=== PATIENT | female | born 1985 | race Caucasian/White ===

== ENCOUNTER → 2021-10-13 09:45 | Outpatient (CLI) | payer SELFPAY ==
--- NOTE | 2021-10-13 09:59 | US_ITS ---
FINAL REPORT CLINICAL HISTORY: ANATOMY SCAN FINDINGS: Sonographic images of the gravid uterus were obtained. There is a single living intrauterine . Heart rate was detected measuring 149 bpm. The position is variable. The biparietal diameter is 4.97 cm corresponding to 21 week 1 day gestation. The head circumference is 17.62 cm corresponding to 20 week 1 day gestation. The abdominal circumference is 16.10 cm corresponding to 21 week 2 day gestation. The femur length is 3.41 cm corresponding to 20 weeks 6 day gestation. The placenta is fundal and posterior. The average ultrasound age is 20 week 6 day gestation. No anomaly is identified. IMPRESSION: Single living intrauterine . Reviewed, Interpreted and Dictated by Justin Barrett III, MD Transcribed by Laura Serra Authenticated by Justin Barrett III, MD on 10/13/2021 01:00:13 PM [facility][1]
== END ==
DX: O09.522 Supervision of elderly multigravida, second trimester (principal)
CPT/HCPCS: 76801

== ENCOUNTER 2024-06-12 11:25 | Outpatient (CLI) | payer BC, SELFPAY ==
[2024-06-12 11:42] LABS: Basophils % 0.3 % (0.1-2.0); Eosinophils # 0.3 K/mm3 (0.0-0.4); Hematocrit 43.6 % (37.0-47.0); Hemoglobin 14.1 g/dL (12.2-16.2); Lymphocytes # 0.9 K/mm3 (0.7-4.5); Lymphocytes % 18.3 % (10-50); Mean Corpuscular HGB Conc 32.2 g/dL (31.8-35.4); Mean Corpuscular Volume 93.2 fl (81-99); Mean Platelet Volume 8.5 fl (7.4-10.4); Monocytes # 0.3 K/mm3 (0.1-1.0); Monocytes % 5.1 % (1.7-9.3); Neutrophils # 3.6 K/mm3 (1.8-7.8); Neutrophils % 71.3 % (37.0-80.0); Platelet Count 245 K/mm3 (142-424); Red Blood Count 4.68 M/mm3 (4.20-5.40); Red Cell Distribution Width 13.1 % (11.5-17.5); White Blood Count 5.1 K/mm3 (4.8-10.8)
[2024-06-12 12:19] LABS: Alanine Aminotransferase 14 U/L (12-78); Albumin/Globulin Ratio 1.4 (1.1-1.8); Alkaline Phosphatase 61 U/L (38-126); Anion Gap 7.7 mEq/L (5-15); Aspartate Amino Transferase 19 U/L (14-36); Bilirubin,Total 0.6 mg/dl (0.2-1.3); Blood Urea Nitrogen 10 mg/dl (7-17); Calcium 8.4 mg/dl (8.4-10.2); Carbon Dioxide 29 mmol/L (22.0-30.0); Chloride 105 mmol/L (98-107); Cholesterol 131 mg/dl (140-200); Estimated Glomerular Filt Rate 111 ml/min (>60); GFR (African American) 135 ML/MIN (>60); Globulin 2.9 g/dL (1.3-3.2); Glucose 96 mg/dl (74-100); HDL Cholesterol 44 mg/dl (40-60); Potassium 4.7 mmoL/L (3.5-5.1); Sodium 137 mmol/L (136-145); Total Protein,Serum 6.9 g/dl (6.3-8.2); Triglycerides 68 mg/dl (30-150); VLDL Cholesterol 14 mg/dL (0-40)
[2024-06-12 12:30] LABS: Direct LDL Cholesterol 63.29 mg/dL (100-129)
[2024-06-12 12:35] LABS: 25-OH Vitamin D, Total 43.9 ng/mL (30-100)
[2024-06-12 12:37] LABS: Free Thyroxine Index 3.1 ug/dL (5.93-13.13); T4 (Thyroxine) 8.4 ug/dl (5.53-11.0); Triiodothryronine (T3) Uptake 37 % (23.5-40.5)
[2024-06-12 12:50] LABS: Thyroid Stimulating Hormone 0.77 uIU/mL (0.465-4.68)
[2024-06-12 15:19] LABS: Iron 69 ug/dL (37-170)
[2024-06-12 15:30] LABS: Total Iron Binding Capacity 264 ug/dL (265-497)
[2024-06-12 15:58] LABS: Ferritin 40.2 ng/ml (6.24-137)
[2024-06-12 16:41] LABS: Hemoglobin A1C 5.1 % (4.0-6.0)
[2024-06-13 12:14] LABS: FSH 6.1 mIU/mL (.)
== END 2024-06-12 23:59 | disposition home or self-care (01) ==
LOC: LAB 11:26
PROVIDERS: PCP Student in an Organized Health Care Education/Training Program; Visit Provider Student in an Organized Health Care Education/Training Program
DX: G47.00 Insomnia, unspecified (principal); E03.9 Hypothyroidism, unspecified; R73.03 Prediabetes; Z13.21 Encounter for screening for nutritional disorder; R23.2 Flushing; G25.81 Restless legs syndrome
CPT/HCPCS: 36415; 80050; 80053; 80061; 82306; 82670; 82728; 83001; 83036; 83540; 83550; 84436; 84443; 84479; 85025

== ENCOUNTER 2025-07-16 14:33 | Outpatient (CLI) | payer BC, SELFPAY ==
--- OUTSIDE RECORDS SUMMARY | 2025-06-26 13:10 | XMS_ITS | Encounter Summary ---
Author Organization [employer] ([place], [place], [place], [place]) Address [address] [place] [address] Care Team Providers Care Cutting Table Operator Name Role Phone Olivia Lowry APRN Primary Care Provider [phone] Reason for Visit * Reason Comments Palpitations Encounter Details Date Type Department Care Team (Late st Contact Info) Description 06/26/2025 1:10 PM EDT - 06/26/2025 4:06 PM EDT Emergency [facility] Emergency Department [address] [place] [phone] Mookie Johnson MD [address] [place] [address] Palpitations (Primary Dx); Insomnia, unspecified type Discharge Disposition: Home or Self Care Social History Tobacco Use Types Packs/Day Years Used Date Smoking Tobacco: Never Smokeless Tobacco: Never Alcohol Use Standard Drinks/Week Comments Never 0 (1 standard drink = 0.6 oz pur e alcohol) Comments No Sex and Gender Information Value Date Recorded Sex Assigned at Not on file 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 Gender Identity Not on file Sexual Orientation Not on file documented as of this encounter Last Filed Vital Signs Vital Sign Reading Time Taken Comments Blood Pressure 102/66 06/26/2025 3:34 PM EDT Pulse 90 06/26/2025 3:34 PM EDT Temperature 36.7 C (98 F) 06/26/2025 1:17 PM EDT Respiratory Rate 18 06/26/2025 3:34 PM EDT Oxygen Saturation 95% 06/26/2025 3:34 PM EDT Inhaled Oxygen Concentration - - Weight 81.6 kg (180 lb) 06/26/2025 1:17 PM EDT Height 170.2 cm (5' 7 ) 06/26/2025 1:17 PM EDT Body Mass Index 28.19 06/26/2025 1:17 PM EDT documented in this encounter Discharge Instructions * Attachments The following attachments cannot be sent through Care Everywhere. * Palpitations (Marshallese) * Insomnia (Marshallese) documented in this encounter Medications at Time of Discharge liothyronine (CYTOMEL) 5 MCG tabletIndication s:Hypothyroidism Take 1 tablet (5 mcg total) by mouth 2 (two) times daily. 60 tablet 11 05/11/2025 tirzepatide, weight loss, (Zepbound) 15 mg/0.5 mL pnijIndications: Obesity, class 1 Inject 0.5 mLs (15 mg total) under the skin every 7 days. 2 mL 3 05/11/2025 UNKNOWN Mag Glycinate 0785-2181 daily Mag 07-2 capsuled Vit d 10,000-15,000 3 arrows nutra iron plus ( heme iron) 132mg iron daily Tart stuart juice nightly 8oz Biodentical progesterone cream . documented as of this encounter ED Notes * Rob Guevara PA-C - 06/26/2025 1:38 PM EDT Subjective Chief Complaint: Palpitations History of Present Illness: Patient is a 40 y.o. female with past medical history of hypothyroid disease who for last 4 days has had palpitations that come on at night. Sometimes they will wake her up in the middle of the night as well. Saw her primary care provider earlier today for Holter monitor. She does report in the ER, but denies any associated chest pain. Some insomnia and has been on trazodone as well as hydroxyzine which did not help. Patient History Past Medical History: Diagnosis Date Thyroid condition No past surgical history on file. Social History Tobacco Use Smoking status: Never Smokeless tobacco: Never Substance Use Topics Alcohol use: Never Primary Care Provider: Olivia Lowry APRN Review of Systems Review of Systems Negative except as documented in the HPI. Physical Exam Vitals: 06/26/25 1415 06/26/25 1430 06/26/25 1445 06/26/25 1500 BP: Pulse: 96 93 90 85 Resp: Temp: SpO2: 97% 98% 98% 98% Weight: Height: Physical Exam Vitals and nursing note reviewed. Constitutional: General: She is not in acute distress. Appearance: Normal appearance. She is normal weight. She is not ill-appearing, toxic-appearing or diaphoretic. HENT: Head: Normocephalic. Right Ear: External ear normal. Left Ear: External ear normal. Nose: Nose normal. No congestion or rhinorrhea. Eyes: General: No scleral icterus. Right eye: No discharge. Left eye: No discharge. Cardiovascular: Rate and Rhythm: Normal rate and regular rhythm. Pulses: Normal pulses. Heart sounds: Normal heart sounds. No murmur heard. No friction rub. No gallop. Pulmonary: Effort: Pulmonary effort is normal. No respiratory distress. Breath sounds: Normal breath sounds. Abdominal: General: Bowel sounds are normal. There is no distension. Palpations: Abdomen is soft. Tenderness: There is no abdominal tenderness. Musculoskeletal: General: Normal range of motion. Cervical back: Normal range of motion. Skin: Capillary Refill: Capillary refill takes less than 2 seconds. Neurological: General: No focal deficit present. Mental Status: She is alert. Mental status is at baseline. Psychiatric: Mood and Affect: Mood normal. Behavior: Behavior normal. Thought Content: Thought content normal. Judgment: Judgment normal. Procedures ED Course & MDM ED Course as of 06/26/25 1538 SunJun 26, 2025 1523 ECG Interpretation: Regular Sinus Rhythm with a heart rate of 88. Right axis. Non-specific ST/T wave changes, as interpreted by me. No overt evidence of Brugada sign, delta waves, epsilon waves,significantly prolonged QTc, excessively short UT, or malignant arrhythmia. [WK] ED Course User Index [WK] Mookie Johnson MD Medications - No data to display Medical Decision Making Amount and/or Complexity of Data Reviewed Labs: ordered. Radiology: ordered. ECG/medicine tests: ordered. History of Present Illness: Patient is a 40 y.o. female with past medical history of hypothyroid disease who for last 4 days has had palpitations that come on at night. Sometimes they will wake her up in the middle of the night as well. Saw her primary care provider earlier today for Holter monitor. She does report in the ER, but denies any associated chest pain. Some insomnia and has been on trazodone as well as hydroxyzine which did not help. On exam heart lungs are clear to auscultation. Presenting vitals: Within normal limits Differential diagnosis: Insomnia, electrolyte disturbance, arrhythmia. Labs: CBC, CMP, iron, CBC, ferritin, TSH, magnesium, troponin nonactionable. Imaging: Per my independent interpretation of chest x-ray I do not appreciate any infiltrates or effusions. ECG: Documented in the ED course by the attending physician. Telemetry: Normal sinus rhythm at 78 bpm, no ST segment changes Interventions: Medications - No data to display Discussion: Had lengthy conversation with patient. Unfortunately we do not do Holter monitors in the emergency department. I did do as many labs as I could based off outpatient orders which came backon patient states that putting on supplemental oxygen will actually help her sleepiness. Could havea degree of sleep apnea here and as such we will provide with sleep follow-up. Also provided with cardiology follow-up for possible Holter monitor placement. Telemetry and EKG here are reassuring. Patient was informed of all diagnostic tests as well as their diagnosis. They were educated on return and follow-up parameters. All questions were answered to the best of my ability. Patient found in satisfactory condition and subsequently discharged home. Assessment & Plan Clinical Impression Diagnosis Comment Added By Time Added Palpitations Rob Guevara PA-C 06/26/2025 2:24 PM Insomnia, unspecified type Rob Guevara PA-C 06/26/2025 2:25 PM Disposition: Discharge [1] - 06/26/2025 3:32 PM New Prescriptions No medications on file Contact information for follow-up [facility] Emergency Department Specialty: Emergency Medicine [address] [facility] [id number] Next Steps: Go to Instructions: As needed, If symptoms worsen Olivia Lowry APRN Specialty: Family Medicine, Advanced Practice Registered Nurse Relationship: PCP - General [address] [place] [address] Next Steps: Schedule an appointment as soon as possible for a visit Instructions: As needed, Continuance of care [facility]- CARDIOLOGY [facility] [address] Next Steps: Schedule an appointment as soon as possible for a visit Instructions: Continuance of care [facility] Cardiology Specialty: Cardiology [address] [facility] [phone] Next Steps: Schedule an appointment as soon as possible for a visit Instructions: Continuance of care [facility] Specialty: Sleep Medicine [address] [facility] [address] [facility] [address] Next Steps: Follow up Electronically authenticated by: Rob Guevara PA-C 06/26/25 1538 Cosigned by Mookie Johnson MD at 06/26/2025 5:25 PM EDT Associated attestation - Mookie Johnson MD - 06/26/2025 4:25 PM CDT Based on the medical record, the care appears appropriate . * Zora Aleman RN - 06/26/2025 1:16 PM EDT Pt to ed c/o palpitations since Sunday. States she has had this happen before and has EKGs done andwants a holter monitor to catch it since it usually happens at night documented in this encounter Plan of Treatment Upcoming Encounters Date Type Department Care Team (Late st Contact Info) Description 08/11/2025 10:00 AM EST Office Visit [facility] Primary Care [address] [place] [address] Olivia Lowry APRN [address] [place] [address] 08/06/2026 9:00 AM EST Office Visit [facility] Primary Care [address] [place] [address] Olivia Lowry, SCIENTIFIC AFFAIRS MANAGER [address] [place], [place] [address] documented as of this encounter Procedures Procedure Name Priority Date/Time Associated Diagnosis Comments FS_MODEL_IP_ECG 12-LEAD STAT 06/26/2025 3:19 PM EDT CBC W/ AUTO DIFF STAT 06/26/2025 2:42 PM EDT TSH W REFLEX FT4 STAT 06/26/2025 2:42 PM EDT IRON AND TIBC STAT 06/26/2025 2:42 PM EDT MAGNESIUM STAT 06/26/2025 2:42 PM EDT FERRITIN STAT 06/26/2025 2:42 PM EDT COMPREHENSIVE METABOLIC PANEL STAT 06/26/2025 2:42 PM EDT HIGH SENSITIVITY TROPONIN I STAT 06/26/2025 2:41 PM EDT FOLATE, SERUM STAT 06/26/2025 2:41 PM EDT XR CHEST 1 VIEW PORTABLE / BEDSIDE STAT 06/26/2025 1:49 PM EDT EKG-SCANNED 06/26/2025 documented in this encounter Results * ECG 12 lead (06/26/2025 3:19 PM EDT) VENTRICULAR RATE EKG/MIN 88 BPM GE MUSE ATRIAL RATE (MCT) 88 BPM GE MUSE UT Interval 140 ms GE MUSE QRS-INTERVAL (MSEC) 68 ms GE MUSE QT Interval 362 ms GE MUSE QTC Interval 438 ms GE MUSE P [place] 88 degrees GE MUSE R AXIS (MCT) 96 degrees GE MUSE T Wave [place] 66 degrees GE MUSE Sturgeon Diagnosis Normal sinus rhythm Rightward axis Low voltage QRS Borderline ECG No previous ECGs available Confirmed by Rajwinder BAUTISTA SUZANNE ([id number]) on 07/02/2025 5:45:17 PM GE MUSE 06/26/2025 3:19 PM EDT 07/02/2025 5:45 PM EDT Rob Guveara PA-C ECG ORDERABLES Final Result Performing Organization Address [facility] [[email or web address]] de Phone Number GE MUSE * TSH with Reflex FT4 (06/26/2025 2:42 PM EDT) TSH 1.350 0.358 - 3.740 uIU/mL 06/26/2025 3:12 PM EDT [facility] Blood Venipuncture / Unknown 06/26/2025 2:42 PM EDT 06/26/2025 2:42 PM EDT Rob MOY-C LAB BLOOD ORDERABLES Final Resul t Performing Organization Address [facility] de Phone Number [facility] [address] [phone] * Ferritin (06/26/2025 2:42 PM EDT) Ferritin 62.00 8.00 - 252.00 ng/mL 06/26/2025 3:12 PM EDT [facility] Blood Venipuncture / Unknown 06/26/2025 2:42 PM EDT 06/26/2025 2:42 PM EDT Rob Guevara PA-C LAB BLOOD ORDERABLES Final Resul t Performing Organization Address [facility] [[email or web address]] de Phone Number [facility] [address] [phone] * Iron and TIBC (06/26/2025 2:42 PM EDT) Iron 62 50.0 - 170.0 ug/dL 06/26/2025 3:12 PM EDT [facility] TIBC 268 250 - 450 ug/dL 06/26/2025 3:12 PM EDT [facility] % Saturation 23 15 - 55 % 06/26/2025 3:12 PM EDT [facility] UIBC 206 06/26/2025 3:12 PM EDT [facility] Blood Venipuncture / Unknown 06/26/2025 2:42 PM EDT 06/26/2025 2:42 PM EDT Rob MOY-[place]hel LAB BLOOD ORDERABLES Final Resul t Performing Organization Address [facility] Co de Phone Number [facility] [address] [phone] * Magnesium (06/26/2025 2:42 PM EDT) Magnesium 2.3 1.5 - 2.4 mg/dL 06/26/2025 3:12 PM EDT [facility] Blood Venipuncture / Unknown 06/26/2025 2:42 PM EDT 06/26/2025 2:42 PM EDT Rob MOY-C LAB BLOOD ORDERABLES Final Resul t Performing Organization Address [facility] [[email or web address]] de Phone Number [facility] [address] [phone] * (ABNORMAL) Comprehensive metabolic panel (06/26/2025 2:42 PM EDT) Sodium 139 136 - 146 meq/L 06/26/2025 3:12 PM EDT [facility] Potassium 3.6 3.5 - 5.1 meq/L 06/26/2025 3:12 PM EDT [facility] Chloride 108 102 - 112 meq/L 06/26/2025 3:12 PM EDT [facility] CO2 27 21 - 32 meq/L 06/26/2025 3:12 PM EDT [facility] Calcium 9.1 8.5 - 10.1 mg/dL 06/26/2025 3:12 PM [facility] Glucose 96 74 - 100 mg/dL 06/26/2025 3:12 PM [facility] BUN 12 7 - 22 mg/dL 06/26/2025 3:12 PM [facility] Creatinine 0.67 0.55 - 1.02 mg/dL 06/26/2025 3:12 PM [facility] BUN/Creatinine 18 8 - 20 06/26/2025 3:12 PM [facility] Albumin 3.7 3.4 - 5.0 g/dL 06/26/2025 3:12 PM [facility] Alkaline Phosphatase 53 27 - 136 U/L 06/26/2025 3:12 PM [facility] ALT 22 12 - 78 U/L 06/26/2025 3:12 PM [facility] AST 13 5 - 37 U/L 06/26/2025 3:12 PM [facility] Total Bilirubin 0.5 0.2 - 1.3 mg/dL 06/26/2025 3:12 PM [facility] Protein, Total 7.2 6.4 - 8.2 gm/dL 06/26/2025 3:12 PM [facility] Anion Gap 8(L) 9 - 20 06/26/2025 3:12 PM [facility] A/G Ratio 1.1 1.1 - 2.5 06/26/2025 3:12 PM [facility] Globulin 3.5 1.5 - 4.5 g/dL 06/26/2025 3:12 PM [facility] Osmolality Calc 277.2 mOsm/kg 3:12 PM [facility] eGFR (mL/min/1.73m2) >60 >=60 mL/min/1.7 3m2 06/26/2025 3:12 PM [facility] Comment:ESTIMATED GFR IS NOT ACCURATE CREATININE CLEARANCE IN PREDICTING GLOMERULAR FILTRATION RATE. ESTIMATED GFR IS NOT APPLICABLE FOR DIALYSIS PATIENTS. Blood Venipuncture / Unknown 06/26/2025 2:42 PM EDT 06/26/2025 2:42 PM EDT us Rob Guevara PA-C LAB BLOOD ORDERABLES Final Resul t [facility] [address] [facility] [place] [address], [facility] [phone] * CBC with Auto Diff (06/26/2025 2:42 PM EDT) WBC 6.7 3.9 - 10.0 K/ L 06/26/2025 2:47 PM EDT [facility] RBC 4.58 3.93 - 6.08 M/ L 06/26/2025 2:47 PM EDT [facility] Hemoglobin 13.9 11.2 - 15.7 GM/DL 06/26/2025 2:47 PM EDT [facility] Hematocrit 40.7 34.1 - 44.9 % 06/26/2025 2:47 PM EDT [facility] MCV 89 79 - 95 fL 06/26/2025 2:47 PM EDT [facility] MCH 30.3 25.6 - 32.2 pg 06/26/2025 2:47 PM EDT [facility] MCHC 34.2 32.2 - 36.5 GM/DL 06/26/2025 2:47 PM EDT [facility] RDW 12.4 11.6 - 14.4 % 06/26/2025 2:47 PM EDT [facility] Platelets 215 163 - 369 K/CU MM 06/26/2025 2:47 PM EDT [facility] MPV 10.0 9.4 - 12.4 fL 06/26/2025 2:47 PM EDT [facility] % Neutros 71 34 - 71 % 06/26/2025 2:47 PM EDT [facility] % Lymphs 21 19 - 53 % 06/26/2025 2:47 PM EDT [facility] % Monos 7 4 - 13 % 06/26/2025 2:47 PM EDT [facility] % Eos 1 1 - 7 % 06/26/2025 2:47 PM EDT [facility] % Baso 0 0 - 1 % 06/26/2025 2:47 PM EDT [facility] # Neutros 4.74 1.56 - 6.13 K/ L 06/26/2025 2:47 PM EDT [facility] # Lymphs 1.42 1.18 - 3.74 K/ L 06/26/2025 2:47 PM EDT [facility] # Monos 0.49 0.24 - 0.82 K/ L 06/26/2025 2:47 PM EDT [facility] # Eos 0.04 0.04 - 0.54 K/ L 06/26/2025 2:47 PM EDT [facility] # Baso 0.02 0.01 - 0.08 K/ L 06/26/2025 2:47 PM EDT [facility] % Imm Grans 0.10 0.00 - 0.60 % 06/26/2025 2:47 PM EDT [facility] # IG 0.01 0.00 - 0.05 K/uL 06/26/2025 2:47 PM EDT [facility] Blood Venipuncture / Unknown 06/26/2025 2:42 PM EDT 06/26/2025 2:42 PM EDT Narrative [facility] - 06/26/2025 2:47 PM EDT When CBC w/ Auto Diff is ordered the lab will add a Manual Differential as a quality check at no additional charge if: Lymphocytes greater than seventy five percent with normal or increased WBC Monocytes greater than Fifteen percent Basophil greater than four percent Bands >10% or several immature myeloids are seen on scan Blast? Flag noted Atypical Lymph flag noted us Rob Guevara PA-C LAB BLOOD ORDERABLES Final Resul t [facility] [address] [place] [address], [facility] [phone] * Folate, Serum (06/26/2025 2:41 PM EDT) Pathologist [facility] Folate 12.3 7.0 - 31.4 ng/mL 06/26/2025 6:[address] [facility] Blood Venipuncture / Unknown 06/26/2025 2:41 PM EDT 06/26/2025 2:[address] [facility] - 06/26/2025 6:44 PM EDT Specimen slightly hemolyzed Rob Guevara PA-C LAB BLOOD ORDERABLES Final Resul t Performing Organization Address [facility]/ZIP Co de Phone Number [facility] [address] [phone] * (ABNORMAL) High Sensitivity Troponin I (06/26/2025 2:41 PM EDT) Troponin I High Sensitivity (pg/mL) <3.0(L) 3 - 58.8 pg/mL 06/26/2025 3:06 PM EDT [facility] Comment: Troponin Result (pg/mL) *Interpretation 3-58.8 *Normal; less than 99th percentile of normal range >58.8 *Abnormal; greater than 99th percentile of normal range Biotin specimen concentration >300 ng/mL may lead to falsely depressed results for patient samples. Do not use this test for renal dysfunction patients (eGFR <60) unless it is confirmed that the patient is not taking Biotin. Blood Venipuncture / Unknown 06/26/2025 2:41 PM EDT 06/26/2025 2:41 PM EDT Rob Guevara PA-C LAB BLOOD ORDERABLES Final Resul t Performing Organization Address [facility]/ZIP Co de Phone Number [facility] [address] [phone] * XR chest 1 view portable / bedside (06/26/2025 1:49 PM EDT) Anatomical Region Laterality Modality X-Ray 06/26/2025 2:47 PM EDT Impressions 06/26/2025 3:10 PM EDT No acute cardiopulmonary process. Images reviewed, interpreted, and dictated by Dr. Paige Goddard. Transcribed by Cassandra Medrano PA-C. Narrative 06/26/2025 3:10 PM EDT PORTABLE CHEST. 06/26/2025 1:43 PM HISTORY: Tachycardia, heart palpitations. COMPARISON: None. FINDINGS: The cardiac silhouette is normal in size. The mediastinum is unremarkable. The lungs are clear. There is no pneumothorax. Procedure Note Cherelle Goddard MD - 06/26/2025 PORTABLE CHEST. 06/26/2025 1:43 PM HISTORY: Tachycardia, heart palpitations. COMPARISON: None. FINDINGS: The cardiac silhouette is normal in size. The mediastinum is unremarkable. The lungs are clear. There is no pneumothorax. IMPRESSION: No acute cardiopulmonary process. Images reviewed, interpreted, and dictated by Dr. Paige Goddard. Transcribed by Cassandra Medrano PA-C. us Rob Guevara PA-C IMG DIAGNOSTIC IMAGING ORDERABLE S Final Result * EKG-SCANNED (06/26/2025) Narrative 06/26/2025 Ordered by an unspecified provider. us Default Scanning Provider SCAN ORDERS Final Result documented in this encounter Visit Diagnoses Diagnosis Palpitations- Primary Insomnia, unspecified type documented in this encounter Care Teams Cutting Table Operator Relationship Specialty Start Date End Date Olivia Lowry, SCIENTIFIC AFFAIRS MANAGER [address] [place] [address] PCP - General Family Medicine 06/26/25 documented as of this encounter
--- OUTSIDE RECORDS SUMMARY | 2025-06-26 16:00 | XMS_ITS | Encounter Summary ---
Author Organization [facility] ([place], [place], [place], [place]) Address [address] [place] [address] Care Team Providers Care Digital Ad Trafficker Name Role Phone Olivia Lowry APRN Primary Care Provider [phone] Reason for Referral * Consultation (Routine) - Authorized Specialty Diagnoses / Procedures Referred By Contolivia t Referred To Contact Cardiology Diagnoses Heart palpitations Olivia Lowry APRN [address] [place] [address] Phone: tel: fax: [facility] [address] [place] [phone] Phone: tel: fax: Referral ID Status Reason Start Date Expiration Date Visits Requested Visits Authorized [id number] Authorized Specialty Services Required 06/26/2025 06/26/2026 1 1 Reason for Visit * Reason Comments Palpitations This started 4 days ago.. This happens at night Encounter Details Date Type Department Care Team (Late st Contact Info) Description 06/26/2025 4:00 PM EDT Office Visit [facility] [address] [place] [address] Olivia Lowry APRN [address] [place] [address] Heart palpitations (Primary Dx); Hypothyroidism Social History Tobacco Use Types Packs/Day Years Used Date Smoking Tobacco: Never Smokeless Tobacco: Never Tobacco Cessation:Counseling Given: Not Answered Alcohol Use Standard Drinks/Week Comments Never 0 (1 standard drink = 0.6 oz pur e alcohol) Comments No Sex and Gender Information Value Date Recorded Sex Assigned at Not on file Legal Sex Female 3:39 PM [employer] Gender Identity Not on file Sexual Orientation Not on file documented as of this encounter Last Filed Vital Signs Vital Sign Reading Time Taken Comments Blood Pressure 108/73 06/26/2025 11:48 AM EDT Pulse 100 06/26/2025 11:48 AM EDT Temperature 36.7 C (98.1 F) 06/26/2025 11:48 AM EDT Respiratory Rate 16 06/26/2025 11:48 AM EDT Oxygen Saturation 99% 06/26/2025 11:48 AM EDT Inhaled Oxygen Concentration - - Weight 82.6 kg (182 lb) 06/26/2025 11:48 AM EDT Height 170.2 cm (5' 7 ) 06/26/2025 11:48 AM EDT Body Mass Index 28.51 06/26/2025 11:48 AM EDT documented in this encounter Progress Notes * Olivia Lowry, PAOLA - 06/26/2025 4:00 PM EDT Subjective: Cailin Orozco is a 40 y.o. female. Chief Complaint Patient presents with Palpitations This started 4 days ago.. This happens at night I have reviewed and/or updated the following: Tobacco Allergies Meds Problems Med Hx Surg Hx Fam Hx Comes in with a concern for heart palpitations that only happen at night. This happened last year as well. Wanting a holter monitor placed for heart palpitations, this seems to only happen at night, cannot find correlation between lying flat or not. Does have an adjustable bed and mostly lies at a 45 degree angle at night. She tries to stay well hydrated and takes electrolytes daily. Denies previous cardiovascular history. Per chart - over last two years (05/27/2023 & 06/10/2024) has had similar presenting symptoms that have required urgent care visits, inability to sleep with heart palpitations that have caused worsening anxiety throughout the day. Previously taking max dose of zepbound, stopped 3 weeks ago due to believing she was . Started menses today, would like to restart zepbound. Does like to follow a fully integrative medicinal plan, though started Zepbound for weight loss and PCOS. Hypothyroidism - taking cytomel for this, last labs in December 2024. Does not notice heart palpitations after taking this, states she does have chest pain when she takes more than 5mcg, but has not done this since previous labs. Previous episode last year lasted for 1 week, did not have monitor placed at that time. States she was diagnosed with anxiety with last episode, does not feel this is related as she only has anxiety if heart palpitations cause her to lose sleep. Palpitations Pertinent negatives include no chest pain, coughing, dizziness, fever, shortness of breath or weakness. Review of Systems Constitutional: Negative for activity change, appetite change, fever and unexpected weight change. Eyes: Negative for visual disturbance. Respiratory: Negative for cough, choking, chest tightness and shortness of breath. Cardiovascular: Positive for palpitations. Negative for chest pain and leg swelling. Skin: Negative for pallor, rash and wound. Neurological: Negative for dizziness, syncope, weakness and headaches. Objective: BP 108/73 Pulse 100 Temp 98.1 ??F (36.7 ??C) Resp 16 Ht 1.702 m (5' 7 ) Wt 82.6 kg (182 lb) SpO2 99% BMI 28.51 kg/m?? Physical Exam Vitals and nursing note reviewed. Constitutional: Appearance: Normal appearance. HENT: Head: Normocephalic. Eyes: General: Right eye: No discharge. Left eye: No discharge. Extraocular Movements: Extraocular movements intact. Conjunctiva/sclera: Conjunctivae normal. Pupils: Pupils are equal, round, and reactive to light. Cardiovascular: Rate and Rhythm: Normal rate and regular rhythm. Pulses: Normal pulses. Heart sounds: Normal heart sounds. No murmur heard. No friction rub. No gallop. Pulmonary: Effort: Pulmonary effort is normal. No respiratory distress. Breath sounds: Normal breath sounds. No stridor. No wheezing, rhonchi or rales. Chest: Chest wall: No tenderness. Abdominal: General: There is no distension. Palpations: Abdomen is soft. There is no mass. Tenderness: There is no abdominal tenderness. There is no guarding or rebound. Hernia: No hernia is present. Musculoskeletal: Right lower leg: No edema. Left lower leg: No edema. Lymphadenopathy: Cervical: No cervical adenopathy. Skin: General: Skin is warm and dry. Coloration: Skin is not jaundiced or pale. Findings: No bruising, erythema, lesion or rash. Neurological: General: No focal deficit present. Mental Status: She is alert and oriented to person, place, and time. Psychiatric: Mood and Affect: Mood normal. Behavior: Behavior normal. Assessment: 1. Heart palpitations 2. Hypothyroidism Plan: ICD-10-CM ICD-9-CM 1. Heart palpitations R00.2 785.1 CBC with platelet count + automated diff Comprehensive metabolic panel Magnesium Vitamin B12 IRON, TIBC AND FERRITIN PANEL Folate, Serum ECG 12 lead T3, free T4, free TSH Ambulatory referral to Cardiology ECG in office. NSR 87 without PVC/PAC. Scanned into chart. Discussed different etiologies for heart palpitations in women. Would like to get labs to rule out common diagnoses for this, patient states she would like a monitor placed so she can wear it at homeso episodes can be tracked. Discussion of cardiology referral. Patient fears this would take too long and the episodes would stop, endorses gong to ED to be further assessed. Cardiology referral and labs ordered just in case patient changes mind about emergency department visit. 2. Hypothyroidism E03.9 244.9 T3, free T4, free TSH Thyroid Peroxidase & Thyroglobulin Ab Return in about 2 weeks (around 07/10/2025). documented in this encounter Plan of Treatment Upcoming Encounters Date Type Department Care Team (Late st Contact Info) Description 08/11/2025 10:00 AM EST Office Visit [facility] [address] [place] [address] Olivia Lowry APRN [address] [place] [address] 08/06/2026 9:00 AM EST Office Visit [facility] [address] [place] [address] Olivia Lowry APRN [address] [place] [address] Scheduled Orders Name Type Priority Associated Diagnoses Orde r Schedule CBC with platelet count + automated diff Lab Routine Heart palpitations Expected: 06/26/2025, Expires: 06/26/2026 Comprehensive metabolic panel Lab Routine Heart palpitations Expected: 06/26/2025, Expires: 06/26/2026 Magnesium Lab Routine Heart palpitations Expected: 06/26/2025, Expires: 06/26/2026 Vitamin B12 Lab Routine Heart palpitations Expected: 06/26/2025, Expires: 06/26/2026 IRON, TIBC AND FERRITIN PANEL Lab Routine Heart palpitations Expected: 06/26/2025, Expires: 06/26/2026 Folate, Serum Lab Routine Heart palpitations Expected: 06/26/2025, Expires: 06/26/2026 ECG 12 lead ECG Routine Heart palpitations Expected: 06/26/2025, Expires: 07/26/2026 T3, free Lab Routine Heart palpitations Hypothyroidism Expected: 06/26/2025, Expires: 06/26/2026 T4, free Lab Routine Heart palpitations Hypothyroidism Expected: 06/26/2025, Expires: 06/26/2026 TSH Lab Routine Heart palpitations Hypothyroidism Expected: 06/26/2025, Expires: 06/26/2026 Thyroid Peroxidase & Thyroglobulin Ab Lab Routine Hypothyroidism Expected: 06/26/2025, Expires: 06/26/2026 Scheduled Referrals Name Type Priority Associated Diagnoses Orde r Schedule Ambulatory referral to Cardiology Outpatient Referral Routine Heart palpitations Expected: 06/26/2025, Expires: 09/24/2025 documented as of this encounter Visit Diagnoses Diagnosis Heart palpitations- Primary Palpitations Hypothyroidism Unspecified hypothyroidism documented in this encounter Care Teams Digital Ad Trafficker Relationship Specialty Start Date End Date Olivia Lowry APRN [address] [place] [address] PCP - General Family Medicine 06/26/25 documented as of this encounter
--- OUTSIDE RECORDS SUMMARY | 2025-07-10 10:00 | XMS_ITS | Encounter Summary ---
Author Organization [facility] [place] [address] Care Team Providers Care Manager Web Application Name Role Phone Unavailable Primary Care Provider Unavailabl e Reason for Referral * Holter Monitor (Routine) - Closed Specialty Diagnoses / Procedures Referred By Contac t Referred To Contact Radiology Diagnoses Tachycardia Palpitations Procedures EV EVENT MONITOR Cory Yu MD [address] [place] [address] Phone: tel: fax: Referral ID Status Reason Start Date Expiration Date Visits Re quested Visits Authorized [id number] Closed 07/10/2025 07/10/2027 1 1 Reason for Visit * Reason Comments New Patient Had monitor placed: Tachycardia Palpitations has lasted for a sun and affecting my sleep Shortness of Breath Dizziness sometimes and state may be due to lack of sleep Encounter Details Date Type Department Care Team (Late Contact Info) Description 07/10/2025 10:00 AM EDT Office Visit [facility] [address] [place] [address] Cory Yu MD [address] [place] [address] Encounter to establish care (Primary Dx); Tachycardia; Palpitations; Orthostatic hypotension Social History Tobacco Use Types Packs/Day Years Used Date Smoking Tobacco: Never Smokeless Tobacco: Never Tobacco Cessation:Counseling Given: Not Answered Alcohol Use Standard Drinks/Week Comments Never 0 (1 standard drink = 0.6 oz pur e alcohol) AUDIT-C Answer Date Recorded Q1: How often do you have a drink containing alc ohol? Never 05/06/2021 Average Number of Drinks Not on file 021 Frequency of Binge Drinking Not on file 03/2021 Sexually Active Control Partners Comments Yes Coitus interruptus, Condom Male i nfertility x6 years Comments No Sex and Gender Information Value Date Recorded Sex Assigned at Not on file Legal Sex Female 1:45 PM EDT Gender Identity Not on file Sexual Orientation Not on file documented as of this encounter Last Filed Vital Signs Vital Sign Reading Time Taken Comments Blood Pressure 114/72 07/10/2025 9:48 AM EDT Pulse 103 07/10/2025 9:48 AM EDT Temperature - - Respiratory Rate - - Oxygen Saturation 98% 07/10/2025 9:48 AM EDT Inhaled Oxygen Concentration - - Weight 80.6 kg (177 lb 9.6 oz) 07/10/2025 9:48 A M EDT Height 170.2 cm (5' 7 ) 07/10/2025 9:48 AM EDT Body Mass Index 27.82 07/10/2025 9:48 AM EDT documented in this encounter Progress Notes * Cory Yu MD - 07/10/2025 10:34 AM EDTAssociated Problem(s): Orthostatic hypotension Has had vasovagal syncope and does get orthostatic sometimes when she stands up. She states her home blood pressure at night will sometimes be in the 90s. Advised liberal salt and fluid intake and eat up to 6 g of salt a day if needed * Cory Yu MD - 07/10/2025 10:32 AM EDTAssociated Problem(s): Palpitations ECGs and workup have been normal. Thyroid levels have been normal. She is treated for hypothyroidism. With Cytomel. Will get 2-week event monitor and see if further testing is needed after we have ananalysis may consider beta-michael therapy if this is sinus tachycardia * Cory Yu MD - 07/10/2025 10:31 AM EDTAssociated Problem(s): Tachycardia Thyroid levels have been normal. She has not been on she has been on Zepbound for over 2 years. [place] have her blood pressure run on the low normal side. Advised her to try to make sure she is staying up on her fluid intake as well as her salt intake. We will get a 2-week event monitor to see ifshe is having any significant dysrhythmias suspect possible sinus tachycardia may consider beta-michael therapy depending on results * Cory Yu MD - 07/10/2025 10:00 AM EDT Images from the original note were not included. [facility] [facility]: Tachycardia, palpitation Subjective HPI Patient is a very pleasant 40 y.o. female who presents to establish. They state that have been having some problems over the past several months with tachycardia and palpitations. She will noticed that frequently it will wake her during the night and she will feel like her heart is racing and it does not improve no matter what she does. She states she also has some palpitations where she feels like her heart is pounding in her chest. She has had episodes of this on and off in the past but states that have been more bothersome recently. She had an ECG in the office and actually seen in the ER recently at an outside hospital and had lab work at that time which was relatively normal including t hyroid studies. She is currently on Zepbound had been off it for a couple of weeks because she was worried she might of been but now back on it. She has been on this for 2 years. She has no other cardiac history in the past. She does admit to episodes of probable vasovagal syncope sometimes associated with blood draws and her orthostatic symptoms when she stands up too quickly. Past Medical History[1] Surgical History[2] reports that she has never smoked. She has never used smokeless tobacco. She reports that she does not drink alcohol and does not use drugs. Family History[3] Allergies Levothyroxine Medications Current Medications[4] Objective: Vitals: 07/10/25 0948 BP: 114/72 BP Location: Left arm Patient Position: Sitting Pulse: 103 SpO2: 98% Weight: 177 lb 9.6 oz (80.6 kg) Height: 5' 7 (1.702 m) BSA: Estimated body surface area is 1.92 meters squared as calculated from the following: Height as of this encounter: 5' 7 (1.702 m). Weight as of this encounter: 177 lb 9.6 oz (80.6 kg). BMI: Estimated body mass index is 27.82 kg/m?? as calculated from the following: Height as of this encounter: 5' 7 (1.702 m). Weight as of this encounter: 177 lb 9.6 oz (80.6 kg). Physical Exam General: Alert and oriented ??3, in no acute distress HEENT: Atraumatic, normocephalic moist mucous membranes NECK: No JVD, carotid upstroke is brisk and normal Heart: Regular rate and rhythm, no gallops rubs or murmurs Lungs: Nonlabored respirations, clear to auscultation bilaterally, no wheezes rales or rhonchi Abdomen: Soft nontender nondistended, no mass appreciated, bowel sounds are positive and of good quality Extremities: No cyanosis clubbing or edema, well-perfused Neurologic: Cranial nerves II through XII are grossly intact, no cerebellar signs noted Skin: Warm, dry no rash, no cyanosis or clubbing No results found for: HDL No results found for: CHOLESTEROL No results found for: LDLCALC No results found for: TRIG No results found for: ALT , AST No results found for: NA , K , CL , CO2 , ANIONGAP , CALCIUM , GLU , BUN , CREATININE , GFRAFRAM , GFRNONAFRAM , GFRCKDEPI No results found for: WBC , HGB , HCT , MCV , PLT Last Hgb A1C and Microalbumin results: No results for input(s): HGBA1C , URINEMICROAL in the last 6 hours. Reviewed most recent CBC, BMP, AST, ALT, and lipid panel Assessment and Plan: Diagnoses and all orders for this visit: Encounter to establish care - POCT EKG Tachycardia Overview: Patient describes episodes of on and off palpitations and tachycardia. She states the tachycardia is most bothersome at night where her heart rate will get up in the 120s and sometimes it wakes her up and it just will not go away. Assessment & Plan: Thyroid levels have been normal. She has not been on she has been on Zepbound for over 2 years. [place] have her blood pressure run on the low normal side. Advised her to try to make sure she is staying up on her fluid intake as well as her salt intake. We will get a 2-week event monitor to see ifshe is having any significant dysrhythmias suspect possible sinus tachycardia may consider beta-michael therapy depending on results Orders: - EV EVENT MONITOR; Future Palpitations Overview: Notices palpitations and her heart pounding at sometimes associated with tachycardia has been goingon for the last 2 months Assessment & Plan: ECGs and workup have been normal. Thyroid levels have been normal. She is treated for hypothyroidism. With Cytomel. Will get 2-week event monitor and see if further testing is needed after we have ananalysis may consider beta-michael therapy if this is sinus tachycardia Orders: - EV EVENT MONITOR; Future Orthostatic hypotension Overview: Give symptoms of orthostasis. Did discuss with patient today. Assessment & Plan: Has had vasovagal syncope and does get orthostatic sometimes when she stands up. She states her home blood pressure at night will sometimes be in the 90s. Advised liberal salt and fluid intake and eat up to 6 g of salt a day if needed Cailin will follow up in 3 months. [1] History reviewed. No pertinent past medical history. [2] History reviewed. No pertinent surgical history. [3] Family History Problem Relation Age of Onset Breast Cancer Maternal Grandmother Diabetes Maternal Grandfather Diabetes Paternal Grandmother Heart Disease Paternal Grandmother [4] Current Outpatient Medications Medication Sig Dispense Refill liothyronine (CYTOMEL) 5 mcg Oral Tablet Take 5 mcg by mouth 2 times daily. PROGESTERONE MISC 50 mg/mL by Misc.(Non-Drug; Combo Route) route. TIRZEPATIDE, WEIGHT LOSS, SUBQ Subcutaneous (Inject under the skin). hydrOXYzine (VISTARIL) 25 mg Oral Capsule Take 1 Capsule by mouth 3 times daily as needed for Anxiety. (Patient not taking: Reported on 07/10/2025) 30 Capsule 0 metFORMIN (GLUCOPHAGE) 500 mg Oral Tablet Take 500 mg by mouth daily. (Patient not taking: Reportedon 07/10/2025) methocarbamoL (ROBAXIN) 750 mg Oral Tablet Take 1 Tab by mouth 4 times daily as needed. (Patient not taking: Reported on 05/06/2021) 120 Tab 1 traZODone (DESYREL) 50 mg Oral Tablet Take 1 Tablet by mouth nightly. (Patient not taking: Reportedon 07/10/2025) 30 Tablet 0 No current facility-administered medications for this visit. documented in this encounter Plan of Treatment Upcoming Encounters Date Type Department Care Team (Late st Contact Info) Description 10/28/2025 3:00 PM EST Office Visit [facility] [address] [address] Cory Yu MD [address] [place] [id number] Pending Results Name Type Priority Associated Diagnoses Date /Time EV EVENT MONITOR Imaging Cardiology Routine Tachycardia Palpitations 07/10/2025 12:16 PM EDT Scheduled Orders Name Type Priority Associated Diagnoses Orde r Schedule EV EVENT MONITOR Imaging Cardiology Routine Tachycardia Palpitations 1 Occurrences starting 07/10/2025 until 07/10/2027 documented as of this encounter Procedures Procedure Name Priority Date/Time Associated Diagnosis Comments POCT EKG Routine 07/10/2025 10:02 AM EDT Encounter to establish care documented in this encounter Results * POCT EKG (07/10/2025 10:02 AM EDT) 07/10/2025 10:0 2 AM EDT Impressions [facility] - 07/10/2025 10:02 AM EDT Normal sinus rhythm us Cory Yu MD POINT OF CARE CARDIOLOGY F inal Result [facility] documented in this encounter Visit Diagnoses Diagnosis Encounter to establish care- Primary Reserved for inherently not codable concepts WITHOUT codable children Tachycardia Tachycardia, unspecified Palpitations Orthostatic hypotension documented in this encounter
--- OUTSIDE RECORDS SUMMARY | 2025-07-10 12:00 | XMS_ITS | Encounter Summary ---
Author Organization [place] [address] Care Team Providers Care Stock Associate Name Role Phone Unavailable Primary Care Provider Unavailabl e Reason for Referral * Holter Monitor (Routine) - Closed Specialty Diagnoses / Procedures Referred By Contac t Referred To Contact Radiology Diagnoses Tachycardia Palpitations Procedures EV EVENT MONITOR Cory Yu MD [address] [place] [address] Phone: tel: fax: Referral ID Status Reason Start Date Expiration Date Visits Re quested Visits Authorized [id number] Closed 07/10/2025 07/10/2027 1 1 Reason for Visit * Holter Monitor (Routine) - Closed Specialty Diagnoses / Procedures Referred By Shun alvarado Referred To Contact Radiology Diagnoses Tachycardia Palpitations Procedures EV EVENT MONITOR Cory Yu MD [address] [place] [address] Phone: tel: fax: Referral ID Status Reason Start Date Expiration Date Visits Re quested Visits Authorized [id number] Closed 07/10/2025 07/10/2027 1 1 Encounter Details Date Type Department Care Team (Late st Contact Info) Description 07/10/2025 12:00 PM EDT - 07/10/2025 11:59 PM EDT Hospital Encounter [facility] HOLTER [place] [address] Cory Yu MD [address] [place] [address] Tachycardia; Palpitations Discharge Disposition: Home or Self Care Social [...] on file documented as of this encounter Medications at Time of Discharge liothyronine (CYTOMEL) 5 mcg Oral Tablet Take 5 mcg by mouth 2 times daily. 05/27/2024 PROGESTERONE MISC 50 mg/mL by Misc.(Non-Drug; Combo Route) route. 01/30/2020 TIRZEPATIDE, WEIGHT LOSS, SUBQ Subcutaneous (Inject under the skin). hydrOXYzine (VISTARIL) 25 mg Oral CapsuleIndication s:Anxiety Take 1 Capsule by mouth 3 times daily as needed for Anxiety. 30 Capsule 05/27/2023 metFORMIN (GLUCOPHAGE) 500 mg Oral Tablet Take 500 mg by mouth daily. 04/28/2024 methocarbamoL (ROBAXIN) 750 mg Oral Tablet Take 1 Tab by mouth 4 times daily as needed. 120 Tab 1 04/19/2021 traZODone (DESYREL) 50 mg Oral TabletIndications :Sleep disturbance Take 1 Tablet by mouth nightly. 30 Tablet 06/10/2024 documented as of this encounter Discharge Disposition Disposition Code Departure Means Destination Home or Self Care documented in this encounter Plan of Treatment Upcoming Encounters Date Type Department Care Team (Late st Contact Info) Description 10/28/2025 3:00 PM EST Office [place] [address] Cory Yu MD [address] [place] [address] Pending Results Name Type Priority Associated Diagnoses Date /Time EV EVENT MONITOR Imaging Cardiology Routine Tachycardia Palpitations 07/10/2025 12:16 PM EDT Scheduled Orders Name Type Priority Associated Diagnoses Orde r Schedule EV EVENT MONITOR Imaging Cardiology Routine Tachycardia Palpitations 1 Occurrences starting 07/10/2025 until 07/10/2025 documented as of this encounter Visit Diagnoses Diagnosis Tachycardia Tachycardia, unspecified Palpitations documented in this encounter
--- OUTSIDE RECORDS SUMMARY | 2025-07-13 08:30 | XMS_ITS | Encounter Summary ---
Author Organization [employer] ([place], [place], [place], [place]) Address [address] [place] [address] Care Team Providers Care Diver Tender Name Role Phone Olivia Lowry APRN Primary Care Provider [phone] Reason for Visit * Reason Comments Follow-up 2 week follow up Encounter Details Date Type Department Care Team (Late Contact Info) Description 07/13/2025 8:30 AM EDT Office Visit [facility] [address] [place] [address] Olivia Lowry, PAOLA [address] [place] [address] Hormone replacement therapy (HRT) (Primary Dx); Insomnia; Heart palpitations Social History Tobacco Use Types Packs/Day Years Used Date Smoking Tobacco: Never Smokeless Tobacco: Never Alcohol Use Standard Drinks/Week Comments Never 0 (1 standard drink = 0.6 oz pur e alcohol) Comments No Sex and Gender Information Value Date Recorded Sex Assigned at Not on file 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 Gender Identity Not on file Sexual Orientation Not on file documented as of this encounter Last Filed Vital Signs Vital Sign Reading Time Taken Comments Blood Pressure 114/75 07/13/2025 8:26 AM EDT Pulse 86 07/13/2025 8:26 AM EDT Temperature 36.4 C (97.6 F) 07/13/2025 8:26 AM EDT Respiratory Rate 16 07/13/2025 8:26 AM EDT Oxygen Saturation 98% 07/13/2025 8:26 AM EDT Inhaled Oxygen Concentration - - Weight 82.1 kg (181 lb) 07/13/2025 8:26 AM EDT Height 170.2 cm (5' 7 ) 07/13/2025 8:26 AM EDT Body Mass Index 28.35 07/13/2025 8:26 AM EDT documented in this encounter Progress Notes * Olivia Woodwardley, GLUE MAKER - 07/13/2025 8:30 AM EDT Subjective: Cailin Orozco is a 40 y.o. female. 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 Seeing surgical territory manager with [facility], has her on a high salt diet and increased fluid intake. Currently wearing a 2-week event monitor. Insomnia - was told to begin CBT to help with this, states she started sleeping more than 4 hours afew nights ago and feels as if CBT is helping her. Notices insomnia worsening at time of heart palpitations beginning. High estrogen - was found on LIBYAN testing, started Indolplex 1 months ago to help lower her estrogen. Has regular 26-day cycles, fears her high estrogen could be contributing to her palpitations andinsomnia that she has been experiencing. Has not noticed a difference in how she feels once she started indolplex, periods have been the same and this was around the time her insomnia was worsening. Review of Systems Constitutional: Negative for activity change, appetite change, fatigue, fever and unexpected weightchange. Respiratory: Negative for cough, chest tightness and shortness of breath. Cardiovascular: Positive for palpitations. Negative for chest pain and leg swelling. Genitourinary: Negative for difficulty urinating, menstrual problem, pelvic pain, urgency, vaginal bleeding, vaginal discharge and vaginal pain. Skin: Negative for pallor, rash and wound. Neurological: Negative for light-headedness and headaches. Psychiatric/Behavioral: The patient is not nervous/anxious. Objective: BP 114/75 Pulse 86 Temp 97.6 ??F (36.4 ??C) Resp 16 Ht 1.702 m (5' 7 ) Wt 82.1 kg (181 lb) LMP 06/26/2025 (Exact Date) SpO2 98% BMI 28.35 kg/m?? Physical Exam Vitals and nursing note reviewed. Constitutional: Appearance: Normal appearance. HENT: Head: Normocephalic. Mouth/Throat: Mouth: Mucous membranes are moist. Pharynx: Oropharynx is clear. No oropharyngeal exudate. Eyes: General: Right eye: No discharge. Left eye: No discharge. Pupils: Pupils are equal, round, and reactive to light. Cardiovascular: Rate and Rhythm: Normal rate and regular rhythm. Pulses: Normal pulses. Heart sounds: Normal heart sounds. No murmur heard. No gallop. Pulmonary: Effort: Pulmonary effort is normal. No respiratory distress. Breath sounds: Normal breath sounds. No stridor. No wheezing, rhonchi or rales. Chest: Chest wall: No tenderness. Abdominal: General: There is no distension. Palpations: Abdomen is soft. There is no mass. Tenderness: There is no abdominal tenderness. There is no guarding or rebound. Hernia: No hernia is present. Skin: General: Skin is warm and dry. Neurological: General: No focal deficit present. Mental Status: She is alert and oriented to person, place, and time. Psychiatric: Mood and Affect: Mood normal. Behavior: Behavior normal. Assessment: 1. Hormone replacement therapy (HRT) 2. Insomnia 3. Heart palpitations Plan: ICD-10-CM ICD-9-CM 1. Hormone replacement therapy (HRT) Z79.890 V07.4 DHEA Sulfate ESTRADIOL, SENSITIVE Estrone Sulfate FSH/LH Testosterone, F Eqlib+T LC/MS Progesterone Will update labs at this time, discussion of exercise to help with healthy hormonal regulation. Canstop indolplex if this is worsening insomnia. Continue monitoring cycles. 2. Insomnia G47.00 780.52 DHEA Sulfate ESTRADIOL, SENSITIVE Estrone Sulfate FSH/LH Testosterone, F Eqlib+T LC/MS Progesterone Continue CBT, EBP shows this has worked more consistently and efficacy is better than sleep aids. 3. Heart palpitations R00.2 785.1 DHEA Sulfate ESTRADIOL, SENSITIVE Estrone Sulfate FSH/LH Testosterone, F Eqlib+T LC/MS Progesterone Continue following with cardiology, increase salt and water intake as was suggested. Return for 1 month from time of labs . documented in this encounter Plan of Treatment Upcoming Encounters Date Type Department Care Team (Late st Contact Info) Description 08/11/2025 10:00 AM EST Office Visit [facility] [address] [place] [address] Olivia Lowry APRN [address] [place] [address] 08/06/2026 9:00 AM EST Office Visit [facility] [address] [place] [address] Olivia Lowry APRN [address] [place] [address] Scheduled Orders Name Type Priority Associated Diagnoses Orde r Schedule DHEA Sulfate Lab Routine Hormone replacement therapy (HRT) Insomnia Heart palpitations Expected: 07/13/2025, Expires: 07/13/2026 ESTRADIOL, SENSITIVE Lab Routine Hormone replacement therapy (HRT) Insomnia Heart palpitations Expected: 07/13/2025, Expires: 07/13/2026 Estrone Sulfate Lab Routine Hormone replacement therapy (HRT) Insomnia Heart palpitations Expected: 07/13/2025, Expires: 07/13/2026 FSH/LH Lab Routine Hormone replacement therapy (HRT) Insomnia Heart palpitations Expected: 07/13/2025, Expires: 07/13/2026 Testosterone, F Eqlib+T LC/MS Lab Routine Hormone replacement therapy (HRT) Insomnia Heart palpitations Expected: 07/13/2025, Expires: 07/13/2026 Progesterone Lab Routine Hormone replacement therapy (HRT) Insomnia Heart palpitations Expected: 07/13/2025, Expires: 07/13/2026 documented as of this encounter Visit Diagnoses Diagnosis Hormone replacement therapy (HRT)- Primary Insomnia Insomnia, unspecified Heart palpitations Palpitations documented in this encounter Care Teams Diver Tender Relationship Specialty Start Date End Date Olivia Lowry APRN [address] [place] [address] PCP - General Family Medicine 06/26/25 documented as of this encounter
--- OUTSIDE RECORDS SUMMARY | 2025-07-16 14:44 | XMS_ITS | Encounter Summary ---
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 Gender Identity Not on file Sexual Orientation Not on file documented as of this encounter Plan of Treatment Upcoming Encounters Date Type Department Care Team (Late Contact Info) Description 08/11/2025 10:00 AM EST Office Visit [facility] [address] [place] [address] Olivia Lowry APRN [address] [place] [address] 08/06/2026 9:00 AM EST Office Visit [facility] [address] [place] [address] Olivia Lowry APRN [address] [place] [address] documented as of this encounter Visit Diagnoses Not on filedocumented in this encounter Care Teams Client Renewal Specialist Relationship Specialty Start Date End Date Olivia Lowry, [facility] [address] [place] [address] PCP - General Family Medicine 06/26/25 documented as of this encounter
--- OUTSIDE RECORDS SUMMARY | 2025-07-16 14:44 | XMS_ITS | Encounter Summary ---
Author Organization [employer] ([place], [place], [place], [place]) Address [address] [place] [address] Care Team Providers Care Business School Dean Name Role Phone Olivia Lowry APRN Primary Care Provider + [phone] Encounter Details Date Type Department Care Team ([facility] Contact Info) Description 07/01/2025 Abstract [facility] Primary Care [address] [place] [address] Olivia Lowry APRN [address] [place] [address] Social History Tobacco Use Types Packs/Day Years Used Date Smoking Tobacco: Never Smokeless Tobacco: Never Alcohol Use Standard Drinks/Week Comments Never 0 (1 standard drink = 0.6 oz pur e alcohol) Comments No Sex and Gender Information Value Date Recorded Sex Assigned at Not on file Legal Sex Female 3:39 PM CAREER DEVELOPMENT CONSULTANT Gender Identity Not on file Sexual Orientation Not on file documented as of this encounter Plan of Treatment Upcoming Encounters Date Type Department Care Team ([facility] Contact Info) Description 08/11/2025 10:00 AM EST Office Visit [facility] Primary Care [address] [place] [address] Olivia Lowry APRN [address] [place] [address] 08/06/2026 9:00 AM EST Office Visit [facility] Primary [facility] [address] [place] [address] Olivia Lowry, HEAD TRANSFER CLERK [address] [place] [address] documented as of this encounter Visit Diagnoses Not on filedocumented in this encounter Care Teams Business School Dean Relationship Specialty Start Date End Date Olivia Lowry, HEAD TRANSFER CLERK [address] [place] [address] PCP - General Family Medicine 06/26/25 documented as of this encounter
--- OUTSIDE RECORDS SUMMARY | 2025-07-16 14:44 | XMS_ITS | Encounter Summary ---
Author Organization [employer] ([place], [place], [place], [place]) Address [address] [place] [address] Care Team Providers Care Zoo Caretaker Name Role Phone Pavel Esme Primary Care Provider [phone] Olivia Lowry APRN Primary Care Provider + [phone] Encounter Details Date Type Department Care Team (Late Contact Info) Description 06/23/2025 Abstract [facility] Primary Care [address] [place] [address] Olivia Lowry APRN [address] [place] [address] Social History Tobacco Use Types Packs/Day Years Used Date Smoking Tobacco: Never Smokeless Tobacco: Never Alcohol Use Standard Drinks/Week Comments Never 0 (1 standard drink = 0.6 oz pur e alcohol) Comments No Sex and Gender Information Value Date Recorded Sex Assigned at Not on file 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 Gender Identity Not on file Sexual Orientation Not on file documented as of this encounter Plan of Treatment Upcoming Encounters Date Type Department Care Team (Late Contact Info) Description 08/11/2025 10:00 AM EST Office Visit [facility] Care [address] [place] [address] Olivia Lowry APRN [address] [place] [address] 08/06/2026 9:00 AM EST Office Visit [facility] Primary Care [address] [place] [address] Olivia Lowry APRN [address] [place] [address] documented as of this encounter Visit Diagnoses Not on filedocumented in this encounter Care Teams Zoo Caretaker Relationship Specialty Start Date End Date Esme Zhao DO [address] [place] [address] PCP - General Family Medicine 01/12/25 06/25/25 Olivia Lowry APRN [address] [place] [address] PCP - General Family Medicine 06/26/25 documented as of this encounter
--- OUTSIDE RECORDS SUMMARY | 2025-07-16 14:44 | XMS_ITS | Referral Summary ---
Author Organization [employer] ([place], [place], [place], [place]) Address [address] [place] [address] Care Team Providers Care Electric Sign Wirer Name Role Phone Olivia Lowry APRN Primary Care Provider [phone] Encounters Date Type Department Care Team Description 07/13/2025 Travel 07/13/2025 8:30 AM EDT Office Visit [facility] Primary Care [address] [place] [address] Olivia Lowry APRN Hormone replacement therapy (HRT) (Primary Dx); Insomnia; Heart palpitations 07/08/2025 Orders Only [facility] Primary Care [address] [place] [address] Tejal Kang CMA Heart palpitations 07/01/2025 Abstract [facility] Primary Care [address] [place] [address] Olivia Lowry APRN 06/26/2025 1:10 PM EDT - 06/26/2025 4:06 PM EDT Emergency [facility] Emergency Department [address] [place] [address] Mookie Johnson MD Palpitations (Primary Dx); Insomnia, unspecified type Discharge Disposition: Home or Self Care 06/26/2025 Travel 06/26/2025 4:00 PM EDT Office Visit [facility] Primary [facility] [address] [place] [address] Olivia Lowry APRN Heart palpitations (Primary Dx); Hypothyroidism 06/23/2025 Abstract [facility] Primary Care [address] [place] [address] Olivia Lowry APRN 05/11/2025 Travel 05/11/2025 8:30 AM EDT Office Visit [facility] Primary Care [address] [place], [place] [address] White, Ferdinanda, Obesity, class 1 (Primary Dx); Hypothyroidism from Last 3 Months Allergies No known active allergies Medications UNKNOWN Mag Glycinate [id number] daily Mag 07-2 capsuled Vit d 10,000-15,000 3 arrows nutra iron plus ( heme iron) 132mg iron daily Tart stuart juice nightly 8oz Biodentical progesterone cream . Active tirzepatide, weight loss, (Zepbound) 15 mg/0.5 mL pnijIndications :Obesity, class 1 Inject 0.5 mLs (15 mg total) under the skin every 7 days. 2 mL 3 5 Active liothyronine (CYTOMEL) 5 MCG tabletIndicatio ns:Hypothyroidi sm Take 1 tablet (5 mcg total) by mouth 2 (two) times daily. 60 tablet 11 5 Active Active Problems Problem Noted Date Diagnosed Date MITRA (iron deficiency anemia) 02/13/2025 Obesity, class 1 01/30/2025 High urine methylmalonic acid 01/12/2025 Hypothyroidism 01/12/2025 Vitamin D deficiency 01/12/2025 High serum estradiol 01/12/2025 PCOS (polycystic ovarian syndrome) 01/12/2025 Insomnia 01/12/2025 Resolved Problems Problem Noted Date Diagnosed Date Resolved Date Low serum low density lipoprotein (LDL) 01/12/2025 02/13/2025 Social History Tobacco Use Types Packs/Day Years Used Date Smoking Tobacco: Never Smokeless Tobacco: Never Alcohol Use Standard Drinks/Week Comments Never 0 (1 standard drink = 0.6 oz pur e alcohol) Comments No Sex and Gender Information Value Date Recorded Sex Assigned at Not on file 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 Gender Identity Not on file Sexual Orientation Not on file Last Filed Vital Signs Vital Sign Reading [...] Mass Index 28.35 07/13/2025 8:26 AM EDT Plan of Treatment Upcoming Encounters Date Type Department Care Team (Late st Contact Info) Description 08/11/2025 10:00 AM EST Office Visit [facility] Primary Care [address] [place] [address] Olivia Lowry APRN [address] [place] [address] 08/06/2026 9:00 AM EST Office Visit [facility] [address] [place] [address] Olivia Lowry APRN [address] [place] [address] Procedures Procedure Name Priority Date/Time Associated Diagnosis Comments FS_MODEL_IP_ECG 12-LEAD STAT 06/26/2025 3:19 PM EDT TSH W REFLEX FT4 STAT 06/26/2025 2:42 PM EDT FERRITIN STAT 06/26/2025 2:42 PM EDT IRON AND TIBC STAT 06/26/2025 2:42 PM EDT MAGNESIUM STAT 06/26/2025 2:42 PM EDT COMPREHENSIVE METABOLIC PANEL STAT 06/26/2025 2:42 PM EDT CBC W/ AUTO DIFF STAT 06/26/2025 2:42 PM EDT FOLATE, SERUM STAT 06/26/2025 2:41 PM EDT HIGH SENSITIVITY TROPONIN I STAT 06/26/2025 2:41 PM EDT XR CHEST 1 VIEW PORTABLE / BEDSIDE STAT 06/26/2025 1:49 PM EDT EKG-SCANNED 06/26/2025 from Last 3 Months Results * ECG 12 lead (06/26/2025 3:19 PM EDT) VENTRICULAR RATE EKG/MIN 88 BPM GE MUSE ATRIAL RATE (MCT) 88 BPM GE MUSE NE Interval 140 ms GE MUSE QRS-INTERVAL (MSEC) 68 ms GE MUSE QT Interval 362 ms GE MUSE QTC Interval 438 ms GE MUSE P [place] 88 degrees GE MUSE R AXIS (MCT) 96 degrees GE MUSE T Wave [place] 66 degrees GE MUSE [place] Diagnosis Normal sinus rhythm Rightward axis Low voltage QRS Borderline ECG No previous ECGs available Confirmed by Rajwinder BAUTISTA SUZANNE ([id number]) on 07/02/2025 5:45:17 PM GE MUSE 06/26/2025 3:19 PM EDT 07/02/2025 5:45 PM EDT us Rob Guevara PA-C ECG ORDERABLES Final Result GE MUSE * CBC with Auto Diff (06/26/2025 2:42 PM EDT) Pathologist [facility] WBC 6.7 3.9 - 10.0 K/ L 06/26/2025 2:47 PM EDT [facility] RBC 4.58 3.93 - 6.08 M/ L 06/26/2025 2:47 PM EDT [facility] Hemoglobin 13.9 11.2 - 15.7 GM/DL 06/26/2025 2:47 PM EDT [facility] Hematocrit 40.7 34.1 - 44.9 % 06/26/2025 2:47 PM EDT [facility] MCV 89 79 - 95 fL 06/26/2025 2:47 PM EDT [facility] MCH 30.3 25.6 - 32.2 pg 06/26/2025 2:47 PM EDT [facility] MCHC 34.2 32.2 - 36.5 GM/DL 06/26/2025 2:47 PM EDT [facility] RDW 12.4 11.6 - 14.4 % 06/26/2025 2:47 PM EDT [facility] Platelets 215 163 - 369 K/CU MM 06/26/2025 2:47 PM EDT [facility] MPV 10.0 9.4 - 12.4 fL 06/26/2025 2:47 PM EDT [facility] % Neutros 71 34 - 71 % 06/26/2025 2:47 PM EDT [facility] % Lymphs 21 19 - 53 % 06/26/2025 2:47 PM EDT [facility] % Monos 7 4 - 13 % 06/26/2025 2:47 PM EDT [facility] % Eos 1 1 - 7 % 06/26/2025 2:47 PM EDT [facility] % Baso 0 0 - 1 % 06/26/2025 2:47 PM EDT [facility] # Neutros 4.74 1.56 - 6.13 K/ L 06/26/2025 2:47 PM EDT [facility] # Lymphs 1.42 1.18 - 3.74 K/ L 06/26/2025 2:47 PM EDT [facility] # Monos 0.49 0.24 - 0.82 K/ L 06/26/2025 2:47 PM EDT [facility] # Eos 0.04 0.04 - 0.54 K/ L 06/26/2025 2:47 PM EDT [facility] # Baso 0.02 0.01 - 0.08 K/ L 06/26/2025 2:47 PM EDT [facility] % Imm Grans 0.10 0.00 - 0.60 % 06/26/2025 2:47 PM EDT [facility] # IG 0.01 0.00 - 0.05 K/uL 06/26/2025 2:47 PM EDT [facility] Blood Venipuncture / Unknown 06/26/2025 2:42 PM EDT 06/26/2025 2:42 PM EDT Narrative [facility] - 06/26/2025 2:47 PM EDT When [...] Blast? Flag noted Atypical Lymph flag noted Rob Guevara PA-C LAB BLOOD ORDERABLES Final Resul t Performing Organization Address City/[facility] Co de Phone Number [facility] [address] [place] [address], [facility] [phone] * TSH with Reflex FT4 (06/26/2025 2:42 PM EDT) Pathologist [facility] TSH 1.350 0.358 - 3.740 uIU/mL 06/26/2025 3:12 PM EDT [facility] Blood Venipuncture / Unknown 06/26/2025 2:42 PM EDT 06/26/2025 2:42 PM EDT Rob MOY-C LAB BLOOD ORDERABLES Final Resul t Performing Organization Address [facility]/ZIP Co de Phone Number [facility] [address] [place] [address], [facility] [phone] * Iron and TIBC (06/26/2025 2:42 PM EDT) Iron 62 50.0 - 170.0 ug/dL 06/26/2025 3:12 PM EDT [facility] TIBC 268 250 - 450 ug/dL 06/26/2025 3:12 PM EDT [facility] % Saturation 23 15 - 55 % 06/26/2025 3:12 PM EDT [facility] UIBC 206 06/26/2025 3:12 PM EDT [facility] Blood Venipuncture / Unknown 06/26/2025 2:42 PM EDT 06/26/2025 2:42 PM EDT us Rob Guevara PA-C LAB BLOOD ORDERABLES Final Resul t Performing Organization Address City/[facility]/ZIP Co de Phone Number [facility] [address] [phone] * Magnesium (06/26/2025 2:42 PM EDT) Magnesium 2.3 1.5 - 2.4 mg/dL 06/26/2025 3:12 PM EDT [facility] Blood Venipuncture / Unknown 06/26/2025 2:42 PM EDT 06/26/2025 2:42 PM EDT us Rob Guevara PA-C LAB BLOOD ORDERABLES Final Resul t Performing Organization Address [facility] Co de Phone Number [facility] [address] [place] [address], [facility] [phone] * Ferritin (06/26/2025 2:42 PM EDT) Ferritin 62.00 8.00 - 252.00 ng/mL 06/26/2025 3:12 PM EDT [facility] Blood Venipuncture / Unknown 06/26/2025 2:42 PM EDT 06/26/2025 2:42 PM EDT us Rob Guevara PA-C LAB BLOOD ORDERABLES Final Resul t Performing Organization Address City/[facility]/ZIP Co de Phone Number [facility] [address] [phone] * (ABNORMAL) Comprehensive metabolic panel (06/26/2025 2:42 PM EDT) Sodium 139 136 - 146 meq/L 06/26/2025 3:12 PM EDT [facility] Potassium 3.6 3.5 - 5.1 meq/L 06/26/2025 3:12 PM EDT [facility] Chloride 108 102 - 112 meq/L 06/26/2025 3:12 PM EDT [facility] CO2 27 21 - 32 meq/L 06/26/2025 3:12 PM EDT [facility] Calcium 9.1 8.5 - 10.1 mg/dL 06/26/2025 3:12 PM EDT [facility] Glucose 96 74 - 100 mg/dL 06/26/2025 3:12 PM EDT [facility] BUN 12 7 - 22 mg/dL 06/26/2025 3:12 PM EDT [facility] Creatinine 0.67 0.55 - 1.02 mg/dL 06/26/2025 3:12 PM EDT [facility] BUN/Creatinine 18 8 - 20 06/26/2025 3:12 PM EDT [facility] Albumin 3.7 3.4 - 5.0 g/dL 06/26/2025 3:12 PM EDT [facility] Alkaline Phosphatase 53 27 - 136 U/L 06/26/2025 3:12 PM EDT [facility] ALT 22 12 - 78 U/L 06/26/2025 3:12 PM EDT [facility] AST 13 5 - 37 U/L 06/26/2025 3:12 PM EDT [facility] Total Bilirubin 0.5 0.2 - 1.3 mg/dL 06/26/2025 3:12 PM EDT [facility] Protein, Total 7.2 6.4 - 8.2 gm/dL 06/26/2025 3:12 PM EDT [facility] Anion Gap 8(L) 9 - 20 06/26/2025 3:12 PM EDT [facility] A/G Ratio 1.1 1.1 - 2.5 06/26/2025 3:12 PM EDT [facility] Globulin 3.5 1.5 - 4.5 g/dL 06/26/2025 3:12 PM EDT [facility] Osmolality Calc 277.2 mOsm/kg 3:12 PM EDT [facility] eGFR (mL/min/1.73m2) >60 >=60 mL/min/1.7 3m2 06/26/2025 3:12 PM EDT [facility] Comment:ESTIMATED GFR IS NOT ACCURATE CREATININE CLEARANCE IN PREDICTING GLOMERULAR FILTRATION RATE. ESTIMATED GFR IS NOT APPLICABLE FOR DIALYSIS PATIENTS. Blood Venipuncture / Unknown 06/26/2025 2:42 PM EDT 06/26/2025 2:42 PM EDT Rob Guevara PA-C LAB BLOOD ORDERABLES Final Resul t Performing Organization Address [facility] Co de Phone Number [facility] [address] [place] [address] * (ABNORMAL) High Sensitivity Troponin I (06/26/2025 2:41 PM EDT) Pathologist [facility] Troponin I High Sensitivity (pg/mL) <3.0(L) 3 - 58.8 pg/mL 06/26/2025 3:06 PM EDT [facility] Comment: Troponin Result (pg/mL) *Interpretation 3-58.8 [...] PM EDT 06/26/2025 2:41 PM EDT Rob NUNOC LAB BLOOD ORDERABLES Final Resul t Performing Organization Address City/State/[facility] Co de Phone Number [facility] [address] [place] [address], [facility] [phone] * Folate, Serum (06/26/2025 2:41 PM EDT) Folate 12.3 7.0 - 31.4 ng/mL 06/26/2025 6:44 PM EDT [facility] Blood Venipuncture / Unknown 06/26/2025 2:41 PM EDT 06/26/2025 2:42 PM EDT Narrative [facility] - 06/26/2025 6:44 PM EDT Specimen slightly hemolyzed us Rob Guevara PA-C LAB BLOOD ORDERABLES Final Resul t [facility] [address] [place] [address], [facility] [phone] * XR chest 1 view portable / [...] Default Scanning Provider SCAN ORDERS Final Result from Last 3 Months Insurance BLUE CROSS/BLUE SHIELD Care Teams Electric Sign Wirer Relationship Specialty Start Date End Date Olivia Lowry, LEGAL BILLING SPECIALIST [address] [place] [address] PCP - General Family Medicine 06/26/25
--- OUTSIDE RECORDS SUMMARY | 2025-07-16 14:44 | XMS_ITS | Clinical Summary ---
Author Organization [employer] ([place], [place], [place], [place]) Address [address] [place] [address] Care Team Providers Care Snowmaker Name Role Phone Olivia Lowry APRN Primary Care Provider +1 [phone] Allergies No known active allergies Medications UNKNOWN Mag Glycinate 1116-0175 daily Mag 07-2 capsuled Vit d 10,000-15,000 [...] serum low density lipoprotein (LDL) 01/12/2025 02/13/2025 Encounters Date Type Department Care Team Description 07/13/2025 8:30 AM EDT Office Visit [facility] Primary Care [address] [place], [place] [address] Olivia Lowry APRN Hormone replacement therapy (HRT) (Primary Dx); Insomnia; Heart palpitations 07/13/2025 Travel 07/08/2025 Orders Only [facility] Primary Care [address] [place] [address] Tejal Kang CMA Heart palpitations 07/01/2025 Abstract [facility] Primary [facility] Emergency Department [address] [place], [place] [address] Olivia Lowry APRN 06/26/2025 4:00 PM EDT Office Visit [facility] [address] [place] [address] Olivia Lowry, PAOLA Heart palpitations (Primary Dx); Hypothyroidism 06/26/2025 1:10 PM EDT - 06/26/2025 4:06 PM EDT Emergency [facility] Emergency Department [address] [place] [address] Mookie Johnson MD Palpitations (Primary Dx); Insomnia, unspecified type Discharge Disposition: Home or Self Care 06/26/2025 Travel 06/23/2025 Abstract [facility] Primary Care [address] [place] [address] Olivia Lowry, PAOLA 05/11/2025 8:30 AM EDT Office Visit [facility] Primary [facility] Emergency Department [address] [place] [address] White, Nova, DO Obesity, class 1 (Primary Dx); Hypothyroidism 05/11/2025 Travel from Last 3 Months Family History Medical History Relation Name Comments Glaucoma Father Heart disease Father Hypertension Father Relation Name Status Comments Father Alive Mother Alive Social History Tobacco Use Types Packs/Day Years Used Date Smoking Tobacco: Never Smokeless Tobacco: Never Alcohol Use Standard Drinks/Week Comments Never 0 (1 standard drink = 0.6 oz pur e alcohol) Comments No Sex and Gender Information Value Date Recorded Sex Assigned at Not on file 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 Gender Identity Not on file Sexual Orientation [...] Description 08/11/2025 10:00 AM EST Office Visit [facility] Primary Care [address] [place] [address] Olivia Lowry APRN [address] [place] [address] 08/06/2026 9:00 AM EST Office Visit [facility] Primary Care [address] [place] [address] Olivia Lowry APRN [address] [place] [address] Health Maintenance Due Date Last Done Comments Depression Screening (12+) 1997 HIV Screening 01/18/2000 Hepatitis C Screening 2003 DTAP/TDAP/TD VACCINES (1 - Tdap) 01/18/2004 Pap Smear 05/06/2024 05/06/2021 Breast Cancer Screening 2025 COVID-19 VACCINE (1 - 2023-2 5 season) 2025 Influenza Vaccine (#1) 2025 Tobacco Cessation Counseling and Screening (12+) 06/26/2026 07/13/2025 Pneumococcal Vaccine: 0-49 Years Aged Out No longer eligible based on patient's age to complete this topic Procedures Procedure Name Priority Date/Time Associated Diagnosis [...] ATRIAL RATE (MCT) 88 BPM GE MUSE [place] Interval 140 ms GE MUSE QRS-INTERVAL (MSEC) 68 ms GE MUSE QT Interval 362 ms GE MUSE QTC Interval 438 ms GE MUSE P [place] 88 degrees GE MUSE R AXIS (MCT) 96 degrees GE MUSE T Wave [place] 66 degrees GE MUSE [place] Diagnosis Normal sinus rhythm Rightward axis Low [...] 10.0 K/ L 06/26/2025 2:47 PM EDT [facility] RBC 4.58 3.93 - 6.08 M/ L 06/26/2025 2:47 PM EDT [facility] Hemoglobin 13.9 11.2 - 15.7 GM/DL 06/26/2025 2:47 PM EDT [facility] Hematocrit 40.7 34.1 - 44.9 % 06/26/2025 2:47 PM EDT [facility] MCV 89 79 - 95 fL 06/26/2025 2:47 PM EDT [facility] MCH 30.3 25.6 - 32.2 pg 06/26/2025 2:47 PM EDT [facility] MCHC 34.2 32.2 - 36.5 GM/DL 06/26/2025 2:47 PM EDT [facility] RDW 12.4 11.6 - 14.4 % 06/26/2025 2:47 PM EDT [facility] Platelets 215 163 - 369 K/CU MM 06/26/2025 2:47 PM EDT [facility] MPV 10.0 9.4 - 12.4 fL 06/26/2025 2:47 PM EDT [facility] % Neutros 71 34 - 71 % 06/26/2025 2:47 PM EDT [facility] % Lymphs 21 19 - 53 % 06/26/2025 2:47 PM EDT [facility] % Monos 7 4 - 13 % 06/26/2025 2:47 PM EDT [facility] % Eos 1 1 - 7 % 06/26/2025 2:47 PM EDT [facility] % Baso 0 0 - 1 % 06/26/2025 2:47 PM EDT [facility] # Neutros 4.74 1.56 - 6.13 K/ L 06/26/2025 2:47 PM EDT [facility] # Lymphs 1.42 1.18 - 3.74 K/ L 06/26/2025 2:47 PM EDT [facility] # Monos 0.49 0.24 - 0.82 K/ L 06/26/2025 2:47 PM EDT [facility] # Eos 0.04 0.04 - 0.54 K/ L 06/26/2025 2:47 PM EDT [facility] # Baso 0.02 0.01 - 0.08 K/ L 06/26/2025 2:47 PM EDT [facility] % Imm Grans 0.10 0.00 - 0.60 % 06/26/2025 2:47 PM EDT [facility] # IG 0.01 0.00 - 0.05 K/uL 06/26/2025 2:47 PM EDT [facility] Blood Venipuncture / Unknown 06/26/2025 2:42 PM EDT 06/26/2025 2:42 PM EDT Narrative [facility] - 06/26/2025 2:47 PM EDT [...] PA-C LAB BLOOD ORDERABLES Final Resul t [facility] [address] [facility] [address] [phone] * TSH with Reflex FT4 (06/26/2025 2:42 PM EDT) TSH 1.350 0.358 - 3.740 uIU/mL 06/26/2025 3:12 PM EDT [facility] Blood Venipuncture / Unknown 06/26/2025 2:42 PM EDT 06/26/2025 2:42 PM EDT us Rob NUNOC LAB BLOOD ORDERABLES Final Resul t Performing Organization Address City/[facility]/ZIP Co de Phone Number [facility] [address] [phone] * Iron and TIBC (06/26/2025 2:42 PM EDT) Iron 62 50.0 - 170.0 ug/dL 06/26/2025 3:12 PM EDT [facility] TIBC 268 250 - 450 ug/dL 06/26/2025 3:12 PM EDT [facility] % Saturation 23 15 - 55 % 06/26/2025 3:12 PM EDT [facility] UIBC 206 06/26/2025 3:12 PM EDT [facility] Blood Venipuncture / Unknown 06/26/2025 2:42 PM EDT 06/26/2025 2:42 PM EDT us Rob NUNOC LAB BLOOD ORDERABLES Final Resul t Performing Organization Address [facility] Phone Number [facility] [address] [phone] * Magnesium (06/26/2025 2:42 PM EDT) Magnesium 2.3 1.5 - 2.4 mg/dL 06/26/2025 3:12 PM EDT [facility] Blood Venipuncture / Unknown 06/26/2025 2:42 PM EDT 06/26/2025 2:42 PM EDT us Rob MOY-C LAB BLOOD ORDERABLES Final Resul t [facility] [address] [phone] * Ferritin (06/26/2025 2:42 PM EDT) Ferritin 62.00 8.00 - 252.00 ng/mL 06/26/2025 3:12 PM EDT [facility] Blood Venipuncture / Unknown 06/26/2025 2:42 PM EDT 06/26/2025 2:42 PM EDT Rob Guevara PA-C LAB BLOOD ORDERABLES Final Resul t [facility] [address] [phone] * (ABNORMAL) Comprehensive metabolic panel (06/26/2025 2:42 PM EDT) Pathologist [facility] Sodium 139 136 - 146 meq/L 06/26/2025 3:12 PM EDT [facility] Potassium 3.6 3.5 - 5.1 meq/L 06/26/2025 3:12 PM EDT [facility] Chloride 108 102 - 112 meq/L 06/26/2025 3:12 PM EDT [facility] CO2 27 21 - 32 meq/L 06/26/2025 3:12 PM EDT [facility] Calcium 9.1 8.5 - 10.1 mg/dL 06/26/2025 3:12 PM EDT [facility] Glucose 96 74 - 100 mg/dL 06/26/2025 3:12 PM EDT [facility] BUN 12 7 - 22 mg/dL 06/26/2025 3:12 PM EDT [facility] Creatinine 0.67 0.55 - 1.02 mg/dL 06/26/2025 3:12 PM EDT [facility] BUN/Creatinine 18 8 - 20 06/26/2025 3:12 PM EDT [facility] Albumin 3.7 3.4 - 5.0 g/dL 06/26/2025 3:12 PM EDT [facility] Alkaline Phosphatase 53 27 - 136 U/L 06/26/2025 3:12 PM EDT [facility] ALT 22 12 - 78 U/L 06/26/2025 3:12 PM EDT [facility] AST 13 5 - 37 U/L 06/26/2025 3:12 PM EDT [facility] Total Bilirubin 0.5 0.2 - 1.3 mg/dL 06/26/2025 3:12 PM EDT [facility] Protein, Total 7.2 6.4 - 8.2 gm/dL 06/26/2025 3:12 PM EDT [facility] Anion Gap 8(L) 9 - 20 06/26/2025 3:12 PM EDT [facility] A/G Ratio 1.1 1.1 - 2.5 06/26/2025 3:12 PM EDT [facility] Globulin 3.5 1.5 - 4.5 g/dL 06/26/2025 3:12 PM EDT [facility] Osmolality Calc 277.2 mOsm/kg 3:12 PM EDT [facility] eGFR (mL/min/1.73m2) >60 >=60 mL/min/1.7 3m2 06/26/2025 3:12 PM EDT [facility] Comment:ESTIMATED GFR IS NOT ACCURATE CREATININE CLEARANCE IN PREDICTING GLOMERULAR FILTRATION RATE. ESTIMATED GFR IS NOT APPLICABLE FOR DIALYSIS PATIENTS. Blood Venipuncture / Unknown 06/26/2025 2:42 PM EDT 06/26/2025 2:42 PM EDT us Rob Guevara PA-C LAB BLOOD ORDERABLES Final Resul t [facility] [address] [id number], [facility] [phone] * (ABNORMAL) High Sensitivity Troponin I (06/26/2025 2:41 PM EDT) Troponin I High Sensitivity (pg/mL) <3.0(L) 3 - 58.8 pg/mL 06/26/2025 3:06 PM EDT [facility] Comment: Troponin Result (pg/mL) *Interpretation [...] ORDERABLES Final Resul t Performing Organization Address [facility] Co de Phone Number [facility] [address] [phone] * Folate, Serum (06/26/2025 2:41 PM EDT) Folate 12.3 7.0 - 31.4 ng/mL 06/26/2025 6:44 PM EDT [facility] Blood Venipuncture / Unknown 06/26/2025 2:41 PM EDT 06/26/2025 2:42 PM EDT Narrative [facility] - 06/26/2025 6:44 PM EDT Specimen slightly hemolyzed Rob Guevara PA-C LAB BLOOD ORDERABLES Final Resul t Performing Organization Address [facility] Co de Phone Number [facility] [address] [phone] * XR chest 1 view portable / [...] Paige Goddard. Transcribed by Cassandra Medrano PA-C. Rob Guevara PA-C IMG DIAGNOSTIC IMAGING ORDERABLE S Final Result * EKG-SCANNED (06/26/2025) Narrative 06/26/2025 Ordered by an unspecified provider. us Default Scanning Provider SCAN ORDERS Final Result from Last 3 Months Insurance BLUE CROSS/BLUE SHIELD Care Teams Snowmaker Relationship Specialty Start Date End Date Olivia Lowry, [employer]URAL [employer] PA[employer] [address] [place] [address] PCP - General Family Medicine 06/26/25
--- OUTSIDE RECORDS SUMMARY | 2025-07-16 14:44 | XMS_ITS | Encounter Summary ---
Author Organization [employer] ([place], [place], [place], [place]) Address [address] [place] [address] Care Team Providers Care Floor Winder Name Role Phone Hannah Earl DO Primary Care Provider [phone] Olivia Lowry APRN Primary Care Provider [phone] Reason for Visit * Reason Onset Date Comments Appointment 10/30/2024 Encounter Details Date Type Department Care Team (Late st Contact Info) Description 10/30/2024 Telephone [facility] [address] [place] [address] Hannah Earl DO [address] [place] [address] Appointment Social History Tobacco Use Types Packs/Day Years Used Date Smoking Tobacco: Never Assessed Comments Unknown Sex and Gender Information Value Date Recorded Sex Assigned at Not on file 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 No LAST VISIT DATE IS NOT APPLICABLE: Yes MESSAGE PRIORITY: Routine CALLER'S NAME: sandra orozco RELATION TO PATIENT: Self [1] PREFERRED LANGUAGE: Moroccan BEST CALL BACK PHONE NUMBER: Mobile Phone: ([phone]) WHAT IS THE BEST WAY FOR THE OFFICE TO CONTACT YOU?: OK to leave message on voicemail STONE CUTTER documented in this encounter Plan of Treatment Upcoming Encounters Date Type Department Care Team (Late st Contact Info) Description 08/11/2025 10:00 AM EST Office Visit [facility] [address] [place] [address] Olivia Lowry APRN [address] [place] [address] 08/06/2026 9:00 AM EST Office Visit [facility] [address] [place] [address] Olivia Lowry APRN [address] [place] [address] documented as of this encounter Visit Diagnoses Not on filedocumented in this encounter Care Teams Floor Winder Relationship Specialty Start Date End Date Hannah Earl DO [address] [place] [address] PCP - General Family Medicine 01/12/25 06/25/25 Olivia Lowry, HANDS HANGER [address] [place] [address] PCP - General Family Medicine 06/26/25 documented as of this encounter
--- OUTSIDE RECORDS SUMMARY | 2025-07-16 14:44 | XMS_ITS | Encounter Summary ---
Author Organization [facility] [place] [address] Care Team Providers Care Auditor Supervisor Name Role Phone Unavailable Primary Care Provider Unavailabl e Encounter Details Date Type Department Care Team (Latest Contact Info) Description 07/09/2025 Travel Social History Tobacco Use Types Packs/Day [...] Frequency of Binge Drinking Not on file 0803/2021 Sexually Active Control Partners Comments Yes Male infertility x6 years Comments No Sex and Gender Information Value Date Recorded Sex Assigned at Not on file Legal Sex Female 1:45 PM EDT Gender Identity Not on file Sexual Orientation Not on file documented as of this encounter Plan of Treatment Upcoming Encounters Date Type Department Care Team (Late st Contact Info) Description 10/28/2025 3:00 PM EST [place] [address] Cory Yu MD [facility] [place] [address] documented as of this encounter Visit Diagnoses Not on filedocumented in this encounter
--- OUTSIDE RECORDS SUMMARY | 2025-07-16 14:44 | XMS_ITS | Encounter Summary ---
Author Organization [employer] ([place], [place], [place], [place]) Address [address] [place] [address] Care Team Providers Care Braider Operator Name Role Phone Olivia Lowry APRN Primary Care Provider [phone] Encounter Details Date Type Department Care Team (Late st Contact Info) Description 07/08/2025 Orders Only [facility] [address] [place] [address] Tejal Kang, MOLECULAR BIOLOGY SCIENTIST Heart palpitations Social History Tobacco Use Types Packs/Day Years Used Date Smoking Tobacco: Never Smokeless Tobacco: Never Alcohol Use Standard Drinks/Week Comments Never 0 (1 standard drink = 0.6 oz pur e alcohol) Comments No Sex and Gender Information Value Date Recorded Sex Assigned at Not on file 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 Gender Identity Not on file Sexual Orientation Not on file documented as of this encounter Plan of Treatment Upcoming Encounters Date Type Department Care Team (Late Contact Info) Description 08/11/2025 10:00 AM EST Office Visit [facility] [address] [place] [address] Olivia Lowry APRN [address] [place] [address] 08/06/2026 9:00 AM EST Office Visit [facility] [address] [place] [address] Olivia Lowry APRN [address] [place] [address] documented as of this encounter Visit Diagnoses Diagnosis Heart palpitations Palpitations documented in this encounter Care Teams Braider Operator Relationship Specialty Start Date End Date Olivia Lowry, DRILLING INSPECTOR [address] [place] [address] PCP - General Family Medicine 06/26/25 documented as of this encounter
--- OUTSIDE RECORDS SUMMARY | 2025-07-16 14:44 | XMS_ITS | Encounter Summary ---
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 Gender Identity Not on file Sexual Orientation Not on file documented as of this encounter Plan of Treatment Upcoming Encounters Date Type Department Care Team (Late Contact Info) Description 08/11/2025 10:00 AM EST Office Visit [facility] [address] [place] [address] Olivia Lowry APRN [address] [place] [address] 08/06/2026 9:00 AM EST Office Visit [facility] [address] [place] [address] Olivia Lowry APRN [address] [place] [address] documented as of this encounter Visit Diagnoses Not on filedocumented in this encounter Care Teams Uniform Room Attendant Relationship Specialty Start Date End Date Olivia Lowry, LEAD CASHIER [address] [place] [address] PCP - General Family Medicine 06/26/25 documented as of this encounter
--- OUTSIDE RECORDS SUMMARY | 2025-07-16 14:44 | XMS_ITS | Clinical Summary ---
Author Organization [facility] Address [address] [place] [address] Phone Care Team Providers Care Wheel Loader Operator Name Role Phone Unavailable Primary Care Provider Unavailabl e Allergies Active Allergy Reactions Criticality Noted Date Comments Levothyroxine Other (See Comments) 07/10/2025 mood: state may me feel angry Medications PROGESTERONE MISC 50 mg/mL by Misc.(Non-Drug; Combo Route) route. 0 Active methocarbamoL (ROBAXIN) 750 mg Oral Tablet Take 1 Tab by mouth 4 times daily as needed. 120 Tab 1 1 Active Additional Information Patient not taking.Reason: Therapy Completed, Reported on 06/10/2024 hydrOXYzine (VISTARIL) 25 mg Oral CapsuleIndicati ons:Anxiety Take 1 Capsule by mouth 3 times daily as needed for Anxiety. 30 Capsule 3 Active Additional Information Patient not taking.Reason: Pt electing to not take the medication (state made palpitations worse), Reported on 07/10/2025 liothyronine (CYTOMEL) 5 mcg Oral Tablet Take 5 mcg by mouth 2 times daily. 4 Active metFORMIN (GLUCOPHAGE) 500 mg Oral Tablet Take 500 mg by mouth daily. 4 Active TIRZEPATIDE, WEIGHT LOSS, SUBQ Subcutaneous (Inject under the skin). Active traZODone (DESYREL) 50 mg Oral TabletIndicatio ns:Sleep disturbance Take 1 Tablet by mouth nightly. 30 Tablet 4 Active Additional Information Patient not taking.Reason: Pt electing to not take the medication, Reported on 07/10/2025 Active Problems Problem Noted Date Diagnosed Date Tachycardia 07/10/2025 Overview (07/10/2025): Patient describes episodes of on and off palpitations and tachycardia. She states the tachycardia is most bothersome at night where her heart rate will get up in the 120s and sometimes it wakes her up and it just will not go away. Assessment & Plan (07/10/2025 10:31 AM EDT): Thyroid levels have been normal. She has not been on she has been on Zepbound for over 2 years. She does have her blood pressure run on the low normal side. Advised her to try to make sure she is staying up on her fluid intake as well as her salt intake. We will get a 2-week event monitor to see if she is having any significant dysrhythmias suspect possible sinus tachycardia may consider beta-michael therapy depending on results Palpitations 07/10/2025 Overview (07/10/2025): Notices palpitations and her heart pounding at sometimes associated with tachycardia has been going on for the last 2 months Assessment & Plan (07/10/2025 10:32 AM EDT): ECGs and workup have been normal. Thyroid levels have been normal. She is treated for hypothyroidism. With Cytomel. Will get 2-week event monitor and see if further testing is needed after we have an analysis may consider beta-michael therapy if this is sinus tachycardia Orthostatic hypotension 07/10/2025 Overview (07/10/2025): Give symptoms of orthostasis. Did discuss with patient today. Assessment & Plan (07/10/2025 10:34 AM EDT): Has had vasovagal syncope and does get orthostatic sometimes when she stands up. She states her home blood pressure at night will sometimes be in the 90s. Advised liberal salt and fluid intake and eat up to 6 g of salt a day if needed Encounters Date Type Department Care Team Description 07/10/2025 12:00 PM EDT - 07/10/2025 11:59 PM EDT Hospital Encounter [facility] [address] [place] [id number] Cory Yu MD Tachycardia; Palpitations Discharge Disposition: Home or Self Care 07/10/2025 10:00 AM EDT Office Visit [facility] [address] [place] [address] Cory Yu MD Encounter to establish care (Primary Dx); Tachycardia; Palpitations; Orthostatic hypotension 07/09/2025 Travel from Last 3 Months Family History Medical History Relation Name Comments Diabetes Maternal Grandfather Breast Cancer Maternal Grandmother Diabetes Paternal Grandmother Heart Disease Paternal Grandmother Relation Name Status Comments Maternal Grandfather Maternal Grandmother Paternal Grandmother Social History Tobacco Use Types Packs/Day Years [...] on file Sexual Orientation Not on file Obstetrics History Para Term AB IAB SAB Ectopic Multiple Livin g Live Births 1 1 1 1 1 Date Outcome GA Total Labor Labor/2nd/3rd Weight Sex Type Anes PTL Nunu A1 A5 Name Clin 2010 Term Vag-S pont Living Last Filed Vital Signs Vital Sign Reading Time Taken Comments Blood Pressure 114/72 07/10/2025 9:48 AM EDT Pulse 103 07/10/2025 9:48 AM EDT Temperature 37.1 C (98.7 F) 06/10/2024 1:35 PM EDT Respiratory Rate 20 06/10/2024 1:35 PM EDT Oxygen Saturation 98% 07/10/2025 9:48 AM EDT Inhaled Oxygen Concentration - - Weight 80.6 kg (177 lb 9.6 oz) 07/10/2025 9:48 A M EDT Height 170.2 cm (5' 7 ) 07/10/2025 9:48 AM EDT Body Mass Index 27.82 07/10/2025 9:48 AM EDT Plan of Treatment Upcoming Encounters Date Type Department Care Team (Late st Contact Info) Description 10/28/2025 3:00 PM EST [facility] Visit [facility] [address] [address] Cory Yu MD [address] [place] [address] Health Maintenance Due Date Last Done Comments Annual Wellness Exam 01/18/1988 DTaP/TDaP/Td (1 - Tdap) 01/18/2004 Hepatitis B Vaccine (1 of 3 - 19+ 3-dose series) 01/18/2004 Pap Smear 05/06/2024 05/06/2021 Breast Cancer Screening 2025 COVID-19 Vaccine (1 - 2023-2 5 season) 2025 Influenza Vaccine (#1) 2025 Cervical Cancer Screening 05/06/2026 HPV/Pap Cotest 05/06/2026 05/06/2021 Meningococcal B Vaccine Aged Out No l onger eligible based on patient's age to complete this topic Pneumococcal Vaccine 0-49 Aged Out No longer eligible based on patient's age to complete this topic Procedures Procedure Name Priority Date/Time Associated Diagnosis Comments POCT EKG Routine 07/10/2025 10:02 AM EDT Encounter to establish care CONTENT CREATION MANAGER CYTOLOGY REQUEST (PAP ONLY) Routine 05/06/2021 11:27 AM EDT Dysmenorrhea Screening for cervical cancer from Last 3 Months or Most Recently Relevant to Health Maintenance Results * POCT EKG (07/10/2025 10:02 AM EDT) 07/10/2025 10:0 2 AM EDT Impressions [facility] OFFICE - 07/10/2025 10:02 AM EDT Normal sinus rhythm us Cory Yu MD POINT OF CARE CARDIOLOGY F inal Result [facility] OFFICE * CONTENT CREATION MANAGER CYTOLOGY REQUEST (PAP ONLY) (05/06/2021 11:27 AM EDT) CASE REPORT Gynecologic Cytology Report Case: [id number] Authorizing Provider: Tatyana Goetz DO Collected: 05/06/2021 1127 Ordering Location: [facility] Edg Received: 05/06/2021 1127 First Screen: Syeda Smith CT Specimen: LIQUID-BASED PAP - CERVICAL/ENDOCERV ICAL, Cervix, Endocervical 05/10/2021 12:05 PM EDT [facility] PAP FINAL DIAGNOSIS Negative for intraepithelial lesion or malignancy 05/10/2021 12:05 PM EDT [facility] at 1205 EDT MICROSCOPIC DESCRIPTION Microscopic examination is performed and the findings corroborate the diagnosis 05/10/2021 12:05 PM EDT [facility] PAP SMEAR ADEQUACY Satisfactory for evaluation 05/10/2021 12:05 PM EDT [facility] ENDOCERVICAL T-ZONE Transformation zone present 05/10/2021 12:05 PM EDT [facility] EMBEDDED IMAGES 12:05 PM EDT [facility] PAP DISCLAIMER The Pap Smear is a screening test that aids in the detection of cervical cancer and cancer precursors. Both false positive and false negative results can occur. The test should be used at regular intervals, and positive results should be confirmed before definitive therapy. Processed using the ThinPrep Permit Technician Automated cytology screening device (Scannx). 05/10/2021 12:05 PM EDT [facility] Thin Prep ENDOCERVICAL STRUCTURE / Unknown 05/06/2021 11:27 AM EDT 05/06/2021 11:27 AM EDT Tatyana Goetz DO CYTOLOGY ORDERABLES Fin [place] [address] from Last 3 Months or Most Recently Relevant to Health Maintenance Insurance ANTHEM PPO ANTHEM PPO
[2025-07-18 08:17] LABS: FSH 2.8 mIU/mL (.); LH 1.3 mIU/mL (.)
== END 2025-07-16 23:59 | disposition home or self-care (01) ==
LOC: LAB 14:34
DX: G47.00 Insomnia, unspecified (principal); R00.2 Palpitations; Z79.890 Hormone replacement therapy
CPT/HCPCS: 36415; 82627; 82670; 82679; 83001; 83002; 84144; 84402; 84403